=== PATIENT | male | born 1960 | race Caucasian/White ===

== ENCOUNTER 2025-05-25 12:20 | Inpatient (IN) | payer OTHER, SELFPAY ==
[2025-05-25] VITALS (29 sets, daily range): BP systolic 114–151; BP diastolic 59–74; PULSE 80–98; BMI 19.3; BMI 18.6
--- NOTE | 2025-05-25 10:17 | ED.GENMED ---
History of Present Illness
General
Chief Complaint: Breathing Problem
Source: patient
Exam Limitations: none
Time Seen by Provider: 05/25/25 09:58
Nursing documentation reviewed up to this point in time: agreed with
History of Present Illness
History of Present Illness:
See MDM
Review of Systems
Review of Systems
Allergies reviewed?: Yes
All Other Systems: Not applicable
Phy Exam
Physical Exam
Physical Exam:
See MDM
Scores
Heart Failure Risk
Heart Failure Risk Score: Not Applicable
Course
Orders/Labs/Results
Orders:
Orders
05/25/25 09:55
Electrocardiogram (*1) Urgent
Reason for Study: Shortness of Breath
EKG- Treatment ONCE
05/25/25 10:09
CR Chest - 2 Views Urgent
Comment:
Reason For Exam: LAM
05/25/25 10:17
Type And Crossmatch [Type+Screen] Urgent
Complete Blood Count/With Diff Urgent
Comprehensive Metabolic Panel Urgent
Ferritin Urgent
Iron Urgent
NT-proBNP Urgent
PTT Urgent
Prothrombin Time Urgent
Total Iron Binding Urgent
Troponin I Urgent
05/25/25 10:38
Blood Bank Products [* Blood Bank Products] Urgent
Blood Bank Products: *Packed RBC Leuko(PRBC's)
Quantity: 2
Transfuse Today: Yes
Reason: Anemia
05/25/25 10:45
Pantoprazole [Protonix IV] 40 mg IV NOW STA
05/25/25 10:52
ABO2 Urgent
BBK Wristband Number:
Associate notified that ABO2 has been ordered: [id number]
Date: 05/25/25
Time: 10:26
Loss Prevention Officer ID: [id number]
05/25/25 11:44
Admit/Transfer Patient As Directed
Co-Sign Provider:
Level of Care: Inpatient admission
Assign to:: Telemetry
Physician / Group: Cj
Diagnosis: Severe symptomatic anemia
Reason for Telemetry: Other
Other Reason for Telemetry: HH 3.8
Date to Stop Telemetry: 05/27/25
Time to Stop Telemetry: 11:00
Reason for Hospitalization: see progress note
Expected length of stay greater than two midnights?: Yes
ELOS- Estimated Length of Stay in days: 3
I certify the patient meets the requirements for IP care: Yes
PRN Pain Medication Management As Directed
May give lesser potent ordered pain med per pt: Yes
preference::
Protocol:: Medication orders for pain may be administered in a
manner that supports deferring to patient preference
when the pt is:
- Requesting an ordered lesser potent pain medication.
Least to most potent pain medications are defined
as: acetaminophen < NSAID < tramadol < opioids
(morphine, oxycodone, hydromorphone).
- Requesting a lesser dose of the same medication IF
ORDERED.
- Requesting a less intrusive route of administration
if both routes are prescribed by the provider (PO <
IV).
05/25/25 12:00
Code Status As Directed
Resuscitation Status: Full Code
05/27/25 11:00
DC Protocol for Telemetry ONCE
Abnormal Lab Results
05/25/25
10:17
RBC 2.83 L 10^6/uL
(4.70-6.10)
Hgb 3.8 L* g/dL
(13.0-18.0)
Hct 15.9 L* %
(39.0-52.0)
MCV 56.2 L fL
(80.0-94.0)
MCH 13.4 L pg
(27.0-31.0)
MCHC 23.9 L g/dL
(33.0-37.0)
RDW 20.6 H %
(11.5-14.5)
Absolute Lymphs (auto) 0.7 L 10^3/uL
(1.2-3.4)
Lymphocytes % 14.3 L %
(20.5-51.1)
Monocytes % 10.0 H %
(1.7-9.3)
Sodium 134 L mmol/L
(135-145)
Glucose 117 H mg/dl
(70-99)
Calcium 8.2 L mg/dl
(8.4-10.2)
Iron < 20 L ug/dl
(49-181)
Ferritin 4.8 L ng/ml
(17.9-464.0)
AST 13 L U/L
(17-59)
Total Protein 5.8 L g/dl
(6.3-8.2)
Albumin 3.2 L g/dl
(3.5-5.0)
Crossmatch IS Only See Detail
05/25/25 10:17
05/25/25 10:17
Vital Signs
Initial and Last Documented VS:
Initial Vital Signs
BP
144/69
05/25/25 09:55
Last Documented Vital Signs
Temp Pulse Resp BP Pulse Ox
36.7 C 83 16 119/60 99
05/25/25 13:20 05/25/25 13:20 05/25/25 13:20 05/25/25 13:20 05/25/25 13:20
MDM/Problems Addressed
Differential Diagnosis Includes:
see MDM
MDM/Problems Addressed:
Note:
CHIEF COMPLAINT(S)
Shortness of breath and fatigue.
HISTORY OF PRESENT ILLNESS
The patient is a male who presents with a chief complaint of shortness of breath and fatigue, LAM. The symptoms began in December and have progressively worsened. He reports being unable to perform activities like walking upstairs without experiencing
significant shortness of breath, stating, 'I cant even carry myself up.' Previously, he could carry two cases of water up to his condo, but now he has to stop at the first landing. He denies any chest pain but confirms shortness of breath without
associated dark stools, despite looking quite pale. The patient notes experiencing chills, and mentioned a cough that began around November or December, sometimes leading to vomiting but very rarely. he thinks he has lost weight but cannot be sure, he
doesn't weigh himself.
The patient had recently regained insurance via Medicaid and sought medical attention. He visited an urgent care on May 10, where a chest X-ray was performed, reportedly normal per urgent care. The patient brought paperwork from this visit,
including an electrocardiogram. He visited a new PCP today, but was noticeably LAM with tachycardia, had EKG showing lateral st depressions and pt was esnt by EMS
he denies symptoms at rest, denies cp, pleuritic pain, vomting, black stool, alcohol use, cancer history
has never had colonoscopy
PAST MEDICAL AND SURGICAL HISTORY
The patient reports taking valsartan for hypertension. He denies a history of diabetes or cancer and has never required a blood transfusion. The patient has undergone surgery on his foot following an undisclosed injury.
EXTERNAL RECORDS REVIEWED
The patient provided documentation from a previous urgent care visit on May 10, which included a chest X-ray and electrocardiogram that were reportedly normal.
CHRONIC MEDICAL CONDITIONS SIGNIFICANTLY AFFECTING CARE
Hypertension, managed with valsartan.
SOCIAL DETERMINANTS AFFECTING HEALTH
The patient is currently unemployed and on disability due to a foot injury and is covered under Medicaid.
FAMILY HISTORY
The patient reports a family history of heart problems.
PHYSICAL EXAM
GENERAL: Alert , in no apparent distress, noticeably pale
EYE: pupils equal and reactive very pale conjunctive a
NECK: Supple
ENT: o/p clr, mmm.
CARDIAC: Regular rate and rhythm .
LUNGS: Clear breath sounds bilaterally, no acute respiratory distress, no wheezes/rales/rhonchi
ABDOMEN: Soft, without focal tenderness, no r/g, no cvat, normal bowel sounds
Rectal heme positive light brown stool
NEUROLOGICAL: Alert and oriented, no focal neuro deficits
SKIN: Warm and dry, skin intact., Very pale, almost icteric
MUSCULOSKELETAL: No edema, well perfused. neg esau's sign
PSYCH: Normal and appropriate interaction.
- Nursing notes reviewed and vital signs reviewed.
PROBLEM LIST
Acute:
- Shortness of breath
- Fatigue
- Anemia (evidenced by pale appearance and blood in stool)
Chronic:
- Hypertension
PLAN
- Obtain blood work, including complete blood count, to evaluate for anemia.
- Order chest X-ray to assess for any fluid or other underlying causes of respiratory symptoms.
- Type and screen for possible blood transfusion needs, per nursing.
DIFFERENTIAL DIAGNOSIS
The Differential Diagnosis includes, in no particular order and is not limited to:
1. Anemia of chronic disease
2. Iron deficiency anemia
3. Congestive heart failure
4. Chronic obstructive pulmonary disease
5. Pulmonary embolism
6. Gastrointestinal bleed
7. Valvular heart disease
8. Chronic kidney disease with anemia
9. Lung infection or pneumonia
10. Hypothyroidism
64-year-old male coming from an outpatient new primary care doctor appointment for dyspnea on exertion with an abnormal EKG and abnormal vital signs. Patient says symptoms been ongoing for months but progressively worse to the point where he cannot
walk up a full flight of steps without stopping because he is winded. He is not getting any exertional chest pain. He does recover with rest. He says he is always pale but did not notice how significantly pale he was. He has not been checking
his stool. He does not go to the doctor and has not ever had a colonoscopy. His brother recently got diagnosed with some sort of cancer and is in the hospital. Patient was initially mildly tachycardic, at rest this resolved. He is normotensive.
His conjunctive is extremely pale, his stool is heme positive but light brown in color. He has no abdominal tenderness, clear lungs and no signs of heart failure. His hemoglobin is 3.8 which is microcytic hypochromic anemia, he does report that he
does not eat a lot of red meat.
Consent for blood obtained, will transfuse. Patient does have very subtle ST depressions in V5 and V6 which is likely demand ischemia related to his low hemoglobin. His troponin is pending. Signed out to the hospitalist
*Pulse Oximetry
SaO2: 100
Oxygen Mode of Delivery: Room air
Patient hypoxic: no (100)
*Critical Care Note
Total Time (30-74mins, 75-104mins- exclusive of procedures): Not Applicable
ED Attending Note
-
Portions of this chart may have been created with voice recognition software.� Occasional wrong word or��sound alike� substitutions may have occurred due to the inherent limitations of voice recognition software.
Discharge Plan
Departure
Patient Disposition: Admit
Date of Disposition: 05/25/25
Time of Disposition: 10:45
Admit to: Telemetry
Presentation/result/management discussed w/ accepting MD/DO: Hospitalist
Condition: Fair
Covid-19: Not Applicable
Discharge Problem:
Symptomatic anemia
Interventions
Interventions:
*Risk Screen - Suicide Last Done: 05/25/25 10:00
*General Assessment Last Done: 05/25/25 10:00
*Neglect/Abuse Screening Last Done: 05/25/25 10:00
*ED- Fall Risk Assessment Last Done: 05/25/25 10:00
*ED COVID-19 Vaccine History Last Done: 05/25/25 10:00
ED- Cardiac Assessment Last Done: 05/25/25 10:00
ED- Pulmonary Assessment Last Done: 05/25/25 10:00
[2025-05-25 10:34] LABS: Hematocrit 15.9 % (39.0-52.0); Hemoglobin 3.8 g/dL (13.0-18.0); Mean Corp Hgb Conc. 23.9 g/dL (33.0-37.0); Mean Corpuscular Volume 56.2 fL (80.0-94.0); Nucleated Red Blood Cells % 0 % (-); Platelet Count 338 10^3/uL (130-400); Red Cell Dist. Width 20.6 % (11.5-14.5)
[2025-05-25 10:37] LABS: INR 1.00; PT 13.7 Sec (11.4-14.6)
[2025-05-25 10:38] LABS: APTT 31.7 Sec (23.4-35.0)
[2025-05-25 10:45] LABS: Anisocytosis 1+; Hypochromasia 3+; Normal RBC Morphology No; Ovalocytes 1+; Polychromasia Slight
[2025-05-25 10:46] LABS: ALT (SGPT) 11 U/L (0-50); AST (SGOT) 13 U/L (17-59); Albumin 3.2 g/dl (3.5-5.0); Alkaline Phosphatase 83 U/L (38-126); Blood Urea Nitrogen 13 mg/dl (9-20); Calcium 8.2 mg/dl (8.4-10.2); Carbon Dioxide 22 mmol/L (22-30); Chloride 107 mmol/L (98-107); Estimated Creatinine Clearance 83 ml/min; Glucose 117 mg/dl (70-99); Potassium 4.4 mmol/L (3.5-5.1); Sodium 134 mmol/L (135-145); Total Protein 5.8 g/dl (6.3-8.2); eGFR > 60.00
[2025-05-25 10:48] LABS: Iron < 20 ug/dl (49-181)
[2025-05-25 10:53] LABS: Troponin I < 0.012 ng/ml
[2025-05-25 10:56] LABS: Total Iron Binding Capacity 369 ug/dl (261-462)
[2025-05-25] MEDS: PROTONIX IV 40 MG IV (11:10)
--- NOTE | 2025-05-25 12:03 | HPS.HSE ---
Family Physician
-
Family Physician: PHYSICIAN PRIVATE
Chief Complaint
-
Exertional shortness of breath
History of Present Illness
Patient has been progressively having shortness of breath since this year.
Now he is not even able to walk from his bedroom to the bathroom without being short of breath.
He just got Medicaid insurance approved so went to urgent care center where he was put back on his antihypertensive valsartan which he took in the past. He took it only for a week as he was feeling lightheaded dizzy and could not function so he
stopped taking it.
With continued shortness of breath he presented to ER and we found his Hemoglobin of 3.8.
Denies any chest pains or palpitations. No cough. No lower extremity edema. Denies any prior cardiac disease. Strong family history of cardiac disease.
Denies any upper GI symptoms of nausea, heartburn, reflux or abdominal pain. Does not notice his stools so he cannot tell if it was ever noted to be black or dark. He is heme positive here.
Did not have colonoscopy in the past. Not sure if anybody had a colon cancer but his brother has bladder cancer and another sibling has some sort of cancer.
Medical History
Past Medical History
Past Medical History: Reports HTN
Past Surgical History: Reports Other (ankle surgery for fx)
Social History
Tobacco: Former Smoker (quit in 1979)
Alcohol: Occasional
Drug: None
Personal:
Living: With Family
Employment: Not Employed
Family History
Family History: Early CAD
Allergies / Home Medications
Allergies reflects when Allergies were last updated in [facility].
Home Medications with original date entered in [facility]
Allergy/Medication List:
Allergies
Allergy/AdvReac Type Severity Reaction Status Date / Time
No Known Allergies Allergy Unverified 05/25/25 11:09
Home Medications
valsartan 320 mg tablet 320 mg PO DAILY 05/25/25
Review of Systems
-
A 12 point ROS was completed and negative except as noted: Yes
Physical Exam
Vital Signs
Vital Signs
Temp Pulse Resp BP Pulse Ox
98.2 F 90 18 139/74 100
05/25/25 10:00 05/25/25 11:24 05/25/25 11:24 05/25/25 11:24 05/25/25 11:24
Physical Exam
General: Comfortable
HEENT: Other (pale conjuctiva)
Respiratory: Clear
Cardiac: S1/S2, Regular Rhythm and Tachycardia; No Murmur
GI: Soft, Non Tender and No Hepatosplenomegaly
Musculoskeletal: No Edema
Neuro: AO x 3 and No Motor Deficits
Psych: Calm and Intact Judgment/Insight; No Confused
Laboratory Results
-
05/25/25 10:17
05/25/25 10:17
Laboratory Results
PT 13.7 Sec (11.4-14.6) 05/25/25 10:17
INR 1.00 05/25/25 10:17
APTT 31.7 Sec (23.4-35.0) 05/25/25 10:17
Total Bilirubin 0.6 mg/dl (0.2-1.3) 05/25/25 10:17
AST 13 U/L (17-59) L 05/25/25 10:17
ALT 11 U/L (0-50) 05/25/25 10:17
Alkaline Phosphatase 83 U/L (38-126) 05/25/25 10:17
Troponin I < 0.012 ng/ml 05/25/25 10:17
Data Reviewed
-
Lab Data: Labs Reviewed by me
Impression/Plan
-
Severe symptomatic anemia causing exertional shortness of breath. No clinical evidence of acute coronary syndrome nor acute heart failure. Treat anemia and follow symptoms
Severe microcytic anemia with iron deficiency indicis. Ferritin pending. Heme positive stools. Suspect chronic GI bleed. Hemodynamically stable. Keep n.p.o. Transfuse 2 units and follow H&H and transfuse as needed and as tolerated. Aim to
keep hemoglobin more than 7. Start on PPI. Consult GI for endoscopic eval. Start on IV iron as well.
Primary hypertension-patient symptomatic when he was resumed on ARB last week. Hold for now and follow orthostatic blood pressures.
Full code
[2025-05-25 12:48] LABS: Ferritin 4.8 ng/ml (17.9-464.0)
--- NOTE | 2025-05-25 15:50 | CM ---
Met with patient and sister at the bedside in the ED
Pharmacy verified: [facility] @ [address]
Lives w/ spouse; 3rd floor condo; 8 steps to enter building; 24 steps to Condo; railings on stairs; No elevator access; bath has tub w/shower
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
No DME
No SNF or Home Health utilization history
Family member will provide transport
Discharge plan to be determined; Case Management will monitor for needs/services and coordinate when identified
--- NOTE | 2025-05-25 15:55 | CON.GI ---
Addendum entered and electronically signed by Mary Anne Perales Do, MD 05/25/25 17:18:
I saw and examined the patient.
The MEDICAL VOUCHER CLERK's note was reviewed and I agree with the note.
Comment: Kian is a 64yo M with h/o HTN who presents from urgent care for symptomatic severe iron def anemia Hbg 3.8. Denies any overt signs of blood in stools. No AC or chronic nsaids. +diarrhea. Twin brother with colon cancer. Vitals stable
pale appearing NTTP NABs. Labs reviewed
Impression
- Severe symptomatic DAINELLE
ddx includes malignancy, celiac, ectasia or ulcer
- Diarrhea
- FH of CRC (twin brother)
- Remote h/o ETOH use
- Lack of medical insurance or routine health care
- HTN
Recommendations
- Agree with transfusions for goal >7-8
- IV iron
- Add on vit B12 folate
- Check celiac panel
- CLD now NPO at [place] for EGD tomorrow
- To consider Cscope pending above
- IV Protonix once daily
Will follow with you
Original Note:
Consultation
-
Date/Time Consultation Requested: 05/25/25 1550
Date/Time Consultation Performed: 05/25/25 1600
Requesting Provider: Michael Corona MD
Performing Provider: ELOISA Perez, Mary Anne Julian MD
Reason for Consultation: anemia
Medical History
Chief Complaint / HPI
Chief Complaint: shortness of breath, weakness
History of Present Illness:
Pt is a 64yo with hx prior foot fracture with repair, rib fractures, HTN newly diagnosed with limited medical care in past with visit to new PCP today with difficulty with walking and breathing for several months. He also has complaints of
dizziness. In PCP office noted with HR 121, FBS 167 with significant tachypnea and EKG changes and sent to ER for evaluation. In ER noted with hbg 3.8 with MCV 56.2 with iron deficient indices with heme + brown stool and neg troponin. In
review with patient and sister he has family hx colon Cancer in twin brother who is now . He initially denied GI symptoms but per staff later admits to diarrhea with smells of food and will not eat at time to prevent diarrhea. He otherwise
denies dysphagia, GERD, nausea, vomiting, wt loss, abdominal pain, constipation, blood or black in stools. No prior EGD or colonoscopy. No NSAID use other than ASA than may have been given by PCP prior to admission.
Past Medical History
Past Medical History: HTN and Other (fib fracture )
Past Surgical History: Orthopedic (foot fracture with repair )
Social History
Tobacco: Former Smoker
Alcohol: Former (Pt initially denies but per nursing staff with hx ETOH use and ETOH rehab)
Drug: None
Personal:
Living: With Family
Employment: Not Employed
Family History
Family History: Other (father, brother [place], twin brother with colon CA, 2 brother with bladder cancer )
Allergies / Home Medications
Allergy/AdvReac Type Severity Reaction Status Date / Time
No Known Allergies Allergy Unverified 05/25/25 11:09
�Medication �Instructions �Recorded
valsartan 320 mg tablet 320 mg PO DAILY Blood Pressure 05/25/25
Review of Systems
-
History Source: Patient and Family
Constitutional: Reports Fatigue
EENT: Reports No Symptoms
Respiratory: Reports Trouble Breathing
Cardiac: Reports No Symptoms
Abdomen/GI: Reports Diarrhea
: Reports No Symptoms
Musculoskeletal: Reports No Symptoms
Skin: Reports No Symptoms
Neurological: Reports Dizzy and Weakness
Endocrine: Reports No Symptoms
Hematologic/Lymphatic: Reports No Symptoms
Vital Signs
Temp Pulse Resp BP Pulse Ox
98.1 F 88 16 140/67 99
05/25/25 13:20 05/25/25 15:30 05/25/25 15:30 05/25/25 15:30 05/25/25 15:30
Physical Exam
Exam
General: Other (pale appearing )
HEENT: Normocephalic and Anicteric
Respiratory: Clear
Cardiac: Regular Rhythm
GI: Soft, Non Tender and Non Distended
Musculoskeletal: No Clubbing and No Cyanosis
Results
WBC 4.9 10^3/uL (4.8-10.8) 05/25/25 10:17
Hgb 3.8 g/dL (13.0-18.0) L* 05/25/25 10:17
Hct 15.9 % (39.0-52.0) L* 05/25/25 10:17
MCV 56.2 fL (80.0-94.0) L 05/25/25 10:17
Plt Count 338 10^3/uL (130-400) 05/25/25 10:17
Absolute Neuts (auto) 3.6 10^3/uL (1.4-6.5) 05/25/25 10:17
PT 13.7 Sec (11.4-14.6) 05/25/25 10:17
INR 1.00 05/25/25 10:17
APTT 31.7 Sec (23.4-35.0) 05/25/25 10:17
Sodium 134 mmol/L (135-145) L 05/25/25 10:17
Potassium 4.4 mmol/L (3.5-5.1) 05/25/25 10:17
Chloride 107 mmol/L (98-107) 05/25/25 10:17
Carbon Dioxide 22 mmol/L (22-30) 05/25/25 10:17
BUN 13 mg/dl (9-20) 05/25/25 10:17
Creatinine 0.8 mg/dL (0.7-1.3) 05/25/25 10:17
Calcium 8.2 mg/dl (8.4-10.2) L 05/25/25 10:17
Total Bilirubin 0.6 mg/dl (0.2-1.3) 05/25/25 10:17
AST 13 U/L (17-59) L 05/25/25 10:17
ALT 11 U/L (0-50) 05/25/25 10:17
Alkaline Phosphatase 83 U/L (38-126) 05/25/25 10:17
Diagnostic Image Results:
Prior GI Procedures:
EGD:
Colonoscopy:
Assessment / Plan
-
Pt is a 64yo with hx prior foot fracture with repair, rib fractures, HTN newly diagnosed with limited medical care in past with visit to new PCP today with difficulty with walking and breathing for several months. He also had complaints of
dizziness . In PCP office noted with HR 121, FBS 167 with significant tachypnea and EKG changes and sent to ER for evaluation. In ER noted with hbg 3.8 with MCV 56.2 with iron deficient indices with heme + brown stool and neg troponin. In
review with patient and sister he has family hx colon Cancer in twin brother who is now . He initially denied GI symptoms but per staff later admits to diarrhea with smells of food and will not eat at time to prevent diarrhea. He otherwise
denies dysphagia, GERD, nausea, vomiting, wt loss, abdominal pain, constipation, blood or black in stools. No prior EGD or colonoscopy. No NSAID use other than ASA than may have been given by PCP prior to admission.
-symptomatic microcytic iron deficiency anemia
-HTN
-tachycardia on admission
-EKG changes with normal troponin on admission
-diarrhea prior to admission
-mild hyponatremia
-hypoalbuminemia
-twin brother with hx colon CA
other med problems:
-hx foot fracture with repair
-rib fractures
-HTN
-eTOH use with prior ETOH rehab
PLAN:
Etiology of anemia related to PUD, ectasia, mass. celiac related vs other
likely slow blood loss with symptoms for several months
agree with transfusion for 3 units now then repeat hbg to see if further transfusion needed
agree with IV iron
ok for clear dinner
add celiac panel for aM
cont PPI
updated sister at bedside
-
-
Thank you for consultation and allowing me to participate in the patient's care. Please call the economics teacher GI physician during the after hours with any questions or concerns.
[2025-05-25] MEDS: FERRLECIT 110 MG IV (20:32)
[2025-05-25] MEDS: NSS 1000 IV (21:32)
[2025-05-25 21:33] LABS: Folate 11.6 ng/ml (2.76-20); Vitamin B12 182 pg/ml (239-931)
[2025-05-25 22:20] LABS: Hematocrit 22.1 % (39.0-52.0); Hemoglobin 6.4 g/dL (13.0-18.0)
[2025-05-26] VITALS (12 sets, daily range): BP systolic 16–149; BP diastolic 60–79; PULSE 77–95
[2025-05-26 08:16] LABS: Hematocrit 27.5 % (39.0-52.0); Hemoglobin 8.0 g/dL (13.0-18.0); Mean Corp Hgb Conc. 29.1 g/dL (33.0-37.0); Mean Corpuscular Volume 67.7 fL (80.0-94.0); Nucleated Red Blood Cells % 0 % (-); Platelet Count 297 10^3/uL (130-400); Red Cell Dist. Width 30.3 % (11.5-14.5)
[2025-05-26 08:48] LABS: Blood Urea Nitrogen 8 mg/dl (9-20); Calcium 8.0 mg/dl (8.4-10.2); Carbon Dioxide 22 mmol/L (22-30); Chloride 109 mmol/L (98-107); Estimated Creatinine Clearance 94 ml/min; Glucose 80 mg/dl (70-99); Potassium 4.2 mmol/L (3.5-5.1); Sodium 135 mmol/L (135-145); eGFR > 60.00
[2025-05-26] MEDS: PROTONIX IV 40 MG IV (09:32)
[2025-05-26] MEDS: NSS (PRESERVATIVE FREE) 10 ML IV (09:32)
[2025-05-26] MEDS: NSS 1000 IV (09:33)
--- NOTE | 2025-05-26 11:26 | W.PN.UPDATE ---
Update Note
Progress Note Update
EGD done
Irregular z line- bx'd
Small hiatal hernia
Multiple gastric polyps body- bx'd
Bx taken for HPylori
Duodenal flattening 2nd portion- bx'd
REC:
Await path
Colonoscopy tomorrow
[2025-05-26 11:39] LABS: Hepatitis C Antibody Negative (Negative)
--- NOTE | 2025-05-26 12:49 | W.PN.HOSP.TC ---
Today's Communication/Plan
-
For colonoscopy tomorrow.
Assessment / Plan
Assessment / Plan
Severe symptomatic anemia causing exertional shortness of breath. No clinical evidence of acute coronary syndrome nor acute heart failure. Treat anemia and follow symptoms.
Severe microcytic anemia with iron deficiency . Ferritin very low. Heme positive stools. Suspect chronic GI bleed. Hemodynamically stable. Status post 3 units of PRBC with improvement in hemoglobin to 8.0 aim to keep hemoglobin more than 7.
Continue with IV iron. S/p EGD without any source of bleeding. For colonoscopy tomorrow. GI following.
Primary hypertension-patient symptomatic when he was resumed on ARB last week. Hold for now and follow orthostatic blood pressures. Blood pressure under goal
Full code
Anticipated Discharge: 24 - 48 hours
Subjective/Interval History
-
Date of Service: May 26, 2025
Back from EGD.
Feels better in general after transfusion. No shortness of breath at rest. No dizziness.
No nausea vomiting or abdominal pain.
Objective Data
-
Labs:
Laboratory Results
05/26/25 05/26/25 05/26/25
07:57 07:57 07:57
WBC 5.2
Hgb 8.0 L D Cancelled
Hct 27.5 L Cancelled
Plt Count 297
Sodium 135
Potassium 4.2
Chloride 109 H
Carbon Dioxide 22
BUN 8 L
Creatinine 0.7
Glucose 80
Calcium 8.0 L
Vital Signs:
Vital Signs
Temp Pulse Resp BP Pulse Ox
97.1 F 73 23 116/65 96
05/26/25 10:40 05/26/25 10:45 05/26/25 10:45 05/26/25 10:47 05/26/25 10:47
I&O
05/25/25 05/26/25 05/27/25
06:59 06:59 06:59
Intake Total 2059
Output Total 650 / 650
Balance 1409 / 1409
Physical Exam
-
General: No Apparent Distress
Respiratory: Non Labored Respirations; Negative Accessory Resp Muscle Use
Cardiac: Regular Rhythm and S1/S2; Negative Tachycardic
GI: Soft and Nontender
Neuro: AO x 3
Data Reviewed
-
Labs: Labs Reviewed by me
--- NOTE | 2025-05-26 13:06 | CM ---
Home no needs when stable.
Plan; Home no needs
--- NOTE | 2025-05-26 13:49 | PN.CDI ---
CDI
- -
CDI:
Physician Documentation Request
Admit Date: 05/25/25 12:20
Dear Doctor Cj,
Clinical Indicators:
Height: 5 ft 11 in
Weight: 133
RD notes 05/25 'BMI18.6-underweight
Please provide an associated diagnosis related to the abnormal BMI :
BMI < or = to 19
Underweight
Weight Loss
Cachectic
Anorexia
- BMI is not significant
- Other
Use of terms such as suspected, likely, concern for, or probable (associated with a specific diagnosis that is being evaluated, monitored, or treated as if it exists) are acceptable and can be coded in the inpatient setting, when documented at the
time of discharge.
Thank you,
Roma Valero RN, BSN
CDI Specialist
tiger text
Please use your independent medical judgment in providing your response.
[2025-05-26] MEDS: FERRLECIT 110 MG IV (15:52)
[2025-05-26] MEDS: NULYTELY SOLUTION 4 LITERS PO (17:51)
[2025-05-27 03:31] VITALS: BP 99/61
[2025-05-27 07:20] VITALS: BP 128/69
[2025-05-27] MEDS: NSS (PRESERVATIVE FREE) 10 ML IV (08:14)
[2025-05-27] MEDS: PROTONIX IV 40 MG IV (08:14)
[2025-05-27 09:05] LABS: Hematocrit 28.7 % (39.0-52.0); Hemoglobin 8.2 g/dL (13.0-18.0); Mean Corp Hgb Conc. 28.6 g/dL (33.0-37.0); Mean Corpuscular Volume 68.7 fL (80.0-94.0); Platelet Count 341 10^3/uL (130-400); Red Cell Dist. Width 30.6 % (11.5-14.5)
--- NOTE | 2025-05-27 12:02 | W.PN.UPDATE ---
Update Note
Progress Note Update
Colonoscopy done
Circumferential mass in ascending colon/cecum. Bx'd and tattooed x 2 distal to mass
Two 4mm polyps transverse colon and rectum removed with cold snare
REC:
CT abd/pelvis ordered
Consult Colorectal surgery
Clears for now
--- NOTE | 2025-05-27 12:36 | W.PN.HOSP.TC ---
Today's Communication/Plan
-
Consult Colorectal
Assessment / Plan
Assessment / Plan
Severe symptomatic anemia causing exertional shortness of breath. No clinical evidence of acute coronary syndrome nor acute heart failure. Feeling improved.
Severe microcytic anemia with iron deficiency . Ferritin very low. Heme positive stools. Suspect chronic GI bleed. Hemodynamically stable. Status post 3 units of PRBC with improvement in hemoglobin to 8.0 aim to keep hemoglobin more than 7.
Continue with IV iron. S/p EGD without any source of bleeding.
Colonic mass-today's EGD shows A fungating partially obstructing large mass was found in the cecum and in the ascending colon. The mass was circumferential. GI plans to get a CT of the abdomen pelvis. Will consult colorectal surgery. Follow
biopsy report.
Primary hypertension-patient symptomatic when he was resumed on ARB last week. Hold for now and follow orthostatic blood pressures. Blood pressure under goal
Full code
Anticipated Discharge: > 48 hours
Subjective/Interval History
-
Date of Service: May 27, 2025
Back from colo
No N/V or abdo pain
Not SOB
Objective Data
-
Labs:
Laboratory Results
05/27/25
07:48
WBC 6.3
Hgb 8.2 L
Hct 28.7 L
Plt Count 341
Vital Signs:
Vital Signs
Temp Pulse Resp BP Pulse Ox
98 F 82 16 128/69 98
05/27/25 07:20 05/27/25 07:20 05/27/25 07:20 05/27/25 07:20 05/27/25 07:20
I&O
05/26/25 05/27/25 05/28/25
06:59 06:59 06:59
Intake Total 2059 / 2059 720 / 720
Output Total 650 / 650
Balance 1410 / 1410 720 / 720
Physical Exam
-
General: Comfortable
Respiratory: Non Labored Respirations; Negative Accessory Resp Muscle Use
GI: Soft and Nontender
Neuro: AO x 3
Data Reviewed
-
Labs: Labs Reviewed by me
[2025-05-27] MEDS: OMNIPAQUE 50 ML PO (13:48)
[2025-05-27] MEDS: FERRLECIT 110 MG IV (14:40)
[2025-05-27 16:00] VITALS: BP 136/63
[2025-05-28 00:29] VITALS: BP 127/62
[2025-05-28 07:20] VITALS: BP 95/56
[2025-05-28] MEDS: PROTONIX IV 40 MG IV (08:46)
[2025-05-28] MEDS: NSS (PRESERVATIVE FREE) 10 ML IV (08:47)
--- NOTE | 2025-05-28 09:23 | W.PN.GI.CBS2 ---
Today's Communication / Plan
-
CT shows ascending colon mass involving cecum and TI. No evidence of metastatic LN or liver mets
Await CRS input
Await path
Will sign off. Please call back if needed
Assessment / Plan
-
Pt is a 64yo with hx prior foot fracture with repair, rib fractures, HTN newly diagnosed with limited medical care in past with visit to new PCP today with difficulty with walking and breathing for several months. He also had complaints of
dizziness . In PCP office noted with HR 121, FBS 167 with significant tachypnea and EKG changes and sent to ER for evaluation. In ER noted with hbg 3.8 with MCV 56.2 with iron deficient indices with heme + brown stool and neg troponin. In
review with patient and sister he has family hx colon Cancer in twin brother who is now . He initially denied GI symptoms but per staff later admits to diarrhea with smells of food and will not eat at time to prevent diarrhea. He otherwise
denies dysphagia, GERD, nausea, vomiting, wt loss, abdominal pain, constipation, blood or black in stools. No prior EGD or colonoscopy. No NSAID use other than ASA than may have been given by PCP prior to admission.
Impression:
R colon mass
-symptomatic microcytic iron deficiency anemia
-HTN
-tachycardia on admission
-EKG changes with normal troponin on admission
-diarrhea prior to admission
-mild hyponatremia
-hypoalbuminemia
-twin brother with hx colon CA
Subjective
Subjective
Date of Service: May 28, 2025
Denies complaints
Objective
Data Reviewed
Laboratory Data:
Laboratory Results
05/26/25 07:57
Laboratory Results
PT 13.7 Sec (11.4-14.6) 05/25/25 10:17
INR 1.00 05/25/25 10:17
APTT 31.7 Sec (23.4-35.0) 05/25/25 10:17
Total Bilirubin 0.6 mg/dl (0.2-1.3) 05/25/25 10:17
AST 13 U/L (17-59) L 05/25/25 10:17
ALT 11 U/L (0-50) 05/25/25 10:17
Alkaline Phosphatase 83 U/L (38-126) 05/25/25 10:17
Vital Signs and I&O:
Vital Signs
Temp Pulse Resp BP Pulse Ox
98.0 F 76 18 95/56 98
05/28/25 07:20 05/28/25 07:20 05/28/25 07:20 05/28/25 07:20 05/28/25 07:20
I&O
05/27/25 05/28/25 05/29/25
06:59 06:59 06:59
Intake Total 720 / 720 1140 / 1140
Balance 720 / 720 1140 / 1140
Physical Exam
Physical Exam
GI: Soft, Non Distended and Non Tender
[2025-05-28 09:29] LABS: Hematocrit 28.9 % (39.0-52.0); Hemoglobin 8.2 g/dL (13.0-18.0); Mean Corp Hgb Conc. 28.4 g/dL (33.0-37.0); Mean Corpuscular Volume 70.5 fL (80.0-94.0); Platelet Count 359 10^3/uL (130-400); Red Cell Dist. Width 31.4 % (11.5-14.5)
[2025-05-28 10:14] LABS: CEA 0.71 ng/ml
--- NOTE | 2025-05-28 11:19 | W.PN.HOSP.TC ---
Addendum entered and electronically signed by Michael Corona MD 05/28/25 15:05:
BMI 18.6 suggestive underweight
Original Note:
Today's Communication/Plan
-
Await colorectal surgery input
Assessment / Plan
Assessment / Plan
Severe symptomatic anemia causing exertional shortness of breath. No clinical evidence of acute coronary syndrome nor acute heart failure. Feeling improved after transfusion.
Severe microcytic anemia with iron deficiency . Ferritin very low. Heme positive stools. Suspect chronic GI bleed. Hemodynamically stable. Status post 3 units of PRBC with improvement in hemoglobin to 8.0 aim to keep hemoglobin more than 7.
Continue with IV iron. S/p EGD without any source of bleeding.
Colonic mass-[place] shows A fungating partially obstructing large mass was found in the cecum and in the ascending colon. The mass was circumferential. CT of the abdomen pelvis findings of a right colon mass noted. Consult colorectal surgery.
Follow biopsy report.
Primary hypertension-patient symptomatic when he was resumed on ARB last week. Hold for now and follow orthostatic blood pressures. Blood pressure under goal
Full code
Anticipated Discharge: > 48 hours
Subjective/Interval History
-
Date of Service: May 28, 2025
No specific complaints.
Tolerating clear liquid diet.
Denies shortness of breath.
Objective Data
-
Labs:
Laboratory Results
05/28/25
08:49
WBC 6.0
Hgb 8.2 L
Hct 28.9 L
Plt Count 359
Vital Signs:
Vital Signs
Temp Pulse Resp BP Pulse Ox
98.0 F 76 18 95/56 98
05/28/25 07:20 05/28/25 07:20 05/28/25 07:20 05/28/25 07:20 05/28/25 07:20
I&O
0805/28/25 05/29/25
06:59 06:59 06:59
Intake Total 720 / 720 1140 / 1140
Balance 720 / 720 1140 / 1140
Physical Exam
-
General: Comfortable
Respiratory: Non Labored Respirations; Negative Accessory Resp Muscle Use
GI: Soft and Nontender
Neuro: AO x 3
Psych: Calm
Data Reviewed
-
CT Scan: Report Reviewed by me (ct abd/pelvis)
Labs: Labs Reviewed by me
--- NOTE | 2025-05-28 12:08 | CON.CRS ---
Addendum entered and electronically signed by Anthony Hicks MD 05/28/25 12:40:
I saw and examined the patient.
The OUTSIDE COLLECTOR's note was reviewed and I agree with the note.
Comment: Cecal mass, partially obstructing, found on c-scope. Pt reports hematochezia recently. Denies n/v presently, though the bowel prep did cause some vomiting. CT without obstructive signs, mass is demonstrated incolving cecum and TI. Added on
tentatively for right colectomy with CRS for tomorrow. NPO@MN
Original Note:
Consultation
-
Date/Time Consultation Performed: 05/28/25 1105
Medical History
-
Chief Complaint: right abdominal pain
History of Present Illness:
Mr Chase is a 64 yo male with a h/o HTN and no prior colonoscopy before this admission who presented with increasing fatigue with SOB over the past several months to a year with dizziness. He recently obtained medical insurance and has not had
any recent evaluations by a PCP but did present to urgent care given worsening symptoms of dizziness with lightheadedness and was noted to be tachycardic and was sent to the ED. On arrival his hemoglobin was noted to be 3.8. He did not report dark
or bloody stools initially but stool was heme positive in the ED. Currently he is reporting bright red blood in his stools with frequent stooling. He reports some cramping with nausea and vomiting yesterday while undergoing a bowel prep which has
resolved today but he does note ongoing discomfort to the right mid to upper abdomen with tenderness on exam. No distention is present. He has tolerated clear liquids thus far.
Past Medical History
Past Medical History: HTN
Past Surgical History: Orthopedic (ankle)
Social History
Tobacco: Former Smoker (quit 1979)
Alcohol: Former
Personal:
Living: With Family
Family History
Family History: Cancer (colon ca in twin brother, bladder ca in another sibling)
Allergies / Home Medications
Allergy/AdvReac Type Severity Reaction Status Date / Time
No Known Allergies Allergy Unverified 05/25/25 11:09
�Medication �Instructions �Recorded �Confirmed �Type
valsartan 320 mg tablet 320 mg PO DAILY Blood Pressure 05/25/25 05/25/25 History
Review of Systems
-
History Source: Patient
All other systems: Negative unless noted
A 10 point review of systems was completed, and was negative except as per HPI.
Physical Exam
Vital Signs
Temp 98.0 F 05/28/25 07:20
Pulse 76 05/28/25 07:20
Resp Rate 18 05/28/25 07:20
Blood pressure 95/56 05/28/25 07:20
SaO2 98 05/28/25 07:20
Body Mass Index (BMI) 18.6
Lab Results / Allergies
05/28/25 08:49
05/26/25 07:57
WBC 6.0 10^3/uL (4.8-10.8) 05/28/25 08:49
Hgb 8.2 g/dL (13.0-18.0) L 05/28/25 08:49
Hct 28.9 % (39.0-52.0) L 05/28/25 08:49
Plt Count 359 10^3/uL (130-400) 05/28/25 08:49
Abs Immat Gran (auto) 0.1 10^3/uL (0-0.05) H 05/26/25 07:57
Neutrophils % 66.6 % (42.2-75.2) 05/26/25 07:57
Allergy/AdvReac Type Severity Reaction Status Date / Time
No Known Allergies Allergy Unverified 05/25/25 11:09
Physical Exam
General: Well Developed and Well Nourished
HEENT: Moist Mucous Membranes
Respiratory: Non Labored Respirations
GI: Soft and Tender (mild to right mid to upper abd)
Skin: Warm, Dry and Other (pale)
Neuro: Awake, Alert and AO x 3
Psych: Calm
Data Reviewed
-
CT Scan: Image Personally Visualized and interpreted, Report Reviewed by me, Discussed with Physician and Discussed with Patient
Medical Tests (Nuc Med, Echo etc): Report Reviewed by me, Discussed with Physician and Discussed with Patient
Labs: Labs Reviewed by me, Discussed with Physician and Discussed with Patient
Old Records: Reviewed
Assessment / Plan
-
Mr Chase is a 64 yo male with a h/o HTN and no prior colonoscopy before this admission who presented with increasing fatigue with SOB over the past year or so presenting with lightheadedness and symptomatic anemia with initial hemoglobin of 3.8.
He has been transfused with a total of 3 units of prbcs and hemoglobin is now stable at 8.2. Afebrile. Stable VSS. Coags WNL. Cramping with vomiting during bowel prep which has resolved. Passing flatus and bloody stools.
EGD on 05/26 without significant findings.
Colonoscopy on 05/27 with a partially obstructing mass concerning for malignancy seen at the cecum/ascending colon.
CT A&P with mural mass noted causing a partial obstruction in the proximal ascending colon/cecum involving the TI, oral contrast does pass through this area. No obvious metastatic disease noted on imaging. CEA is low at 0.71.
Plan:
Continue clear liquid diet, hold on advancing further
Trend exams labs
Anticipate surgical intervention this admission for right hemicolectomy as the mass is partially obstructing with ongoing bleeding. Will d/w the colorectal team on Thursday regarding timing. NPO after [place] in case OR able to be arranged tomorrow.
[2025-05-28] MEDS: FERRLECIT 110 MG IV (14:04)
[2025-05-28 15:41] VITALS: BP 133/62
[2025-05-28 23:54] VITALS: BP 119/63
[2025-05-29] VITALS (13 sets, daily range): BP systolic 112–166; BP diastolic 60–72; PULSE 66–94; BMI 17.9
[2025-05-29 07:47] LABS: Hematocrit 31.4 % (39.0-52.0); Hemoglobin 9.1 g/dL (13.0-18.0); Mean Corp Hgb Conc. 29.0 g/dL (33.0-37.0); Mean Corpuscular Volume 71.7 fL (80.0-94.0); Platelet Count 387 10^3/uL (130-400); Red Cell Dist. Width 32.6 % (11.5-14.5)
[2025-05-29 08:20] LABS: Blood Urea Nitrogen 9 mg/dl (9-20); Calcium 8.5 mg/dl (8.4-10.2); Carbon Dioxide 22 mmol/L (22-30); Chloride 110 mmol/L (98-107); Estimated Creatinine Clearance 82 ml/min; Glucose 71 mg/dl (70-99); Potassium 4.1 mmol/L (3.5-5.1); Sodium 138 mmol/L (135-145); eGFR > 60.00
[2025-05-29] MEDS: PROTONIX IV 40 MG IV (09:37)
[2025-05-29] MEDS: NSS (PRESERVATIVE FREE) 10 ML IV (09:37)
--- NOTE | 2025-05-29 10:34 | W.PN.CRS1 ---
Today's Communication / Plan
-
OR today
Assessment/Plan
-
64 yo male with a h/o HTN and no prior colonoscopy before this admission who presented with increasing fatigue with SOB over the past year or so presenting with lightheadedness and symptomatic anemia with initial hemoglobin of 3.8. He has been
transfused with a total of 3 units of prbcs and hemoglobin is now stable at 8.2. Afebrile. Stable VSS. Coags WNL. Cramping with vomiting during bowel prep which has resolved. Passing flatus and bloody stools.
EGD on 05/26 without significant findings.
Colonoscopy on 05/27 with a partially obstructing mass concerning for malignancy seen at the cecum/ascending colon.
CT A&P with mural mass noted causing a partial obstruction in the proximal ascending colon/cecum involving the TI, oral contrast does pass through this area. No obvious metastatic disease noted on imaging. CEA is low at 0.71.
Plan:
- OR today for a right colectomy. Discussed with the patient. Likely occur in later afternoon/early evening.
- Remain n.p.o. Adding IV fluids.
- Preop medications ordered.
- CEA is pending
- Monitor hemoglobin. Latest hemoglobin is 9.2.
- Pathology from colonoscopy pending.
Subjective Data
Subjective Data
Date of Service: May 29, 2025
Patient states he has sharp abdominal pain. Denies nausea or vomiting. He was able to drink the prep last night.
Objective Data
-
Vital Signs
Temp Pulse Resp BP Pulse Ox
97.8 F 66 16 166/63 100
05/29/25 07:45 05/29/25 07:45 05/29/25 07:45 05/29/25 07:45 05/29/25 07:45
Intake & Output
05/28/25 05/29/25 05/30/25
06:59 06:59 06:59
Intake Total 1140 / 1140 1310 / 1310
Balance 1140 / 1140 1310 / 1310
Intake:
Oral fluids 1140 / 1140 1200 / 1200
IV piggybacks 110 / 110
Other:
Number of approximated MODERATE 2 4 1
amounts of urine
Lab Results
05/29/25 07:15
05/29/25 07:15
Physical Exam
-
General: No Acute Distress and AOx3
Abdomen: Soft and Tender (Right lower quadrant)
Skin: Warm and Dry
--- NOTE | 2025-05-29 10:45 | W.PN.HOSP.TC ---
Today's Communication/Plan
-
IV fluids
Preop orders per colorectal
Remains n.p.o.
Plan for colectomy later today
trend hgb
Assessment / Plan
Assessment / Plan
#Colonic mass
Colonoscopy shows A fungating partially obstructing large mass was found in the cecum and in the ascending colon. The mass was circumferential. \\
CT of the abdomen pelvis findings of a right colon mass noted. Follow biopsy report.
CEA 0.71
Consult colorectal surgery. Preop orders placed. Plan for right colectomy tentative later today
#Severe symptomatic anemia causing exertional shortness of breath likely secondary to colonic mass
No clinical evidence of acute coronary syndrome nor acute heart failure.
Feeling improved after transfusion.
#Severe microcytic anemia with iron deficiency
Ferritin very low. Heme positive stools. Suspect chronic GI bleed. Hemodynamically stable.
Status post 3 units of PRBC with improvement in hemoglobin to 9.1
Transfuse to keep hemoglobin more than 7.
Continue with IV iron. S/p EGD without any source of bleeding.
#Primary hypertension
patient symptomatic when he was resumed on ARB last week.
Hold for now pre-op.
may need IV prn meds post op
Full code
DVT ppx-scds for now and start chemical ppx post op per surgery
Anticipated Discharge: > 48 hours
Subjective/Interval History
-
Date of Service: May 29, 2025
States mild abdominal discomfort
Objective Data
-
Labs:
Laboratory Results
05/29/25
07:15
WBC 5.1
Hgb 9.1 L
Hct 31.4 L
Plt Count 387
Sodium 138
Potassium 4.1
Chloride 110 H
Carbon Dioxide 22
BUN 9
Creatinine 0.8
Glucose 71
Calcium 8.5
Vital Signs:
Vital Signs
Temp Pulse Resp BP Pulse Ox
97.8 F 66 16 166/63 100
05/29/25 07:45 05/29/25 07:45 05/29/25 07:45 05/29/25 07:45 05/29/25 07:45
I&O
05/28/25 05/29/25 05/30/25
06:59 06:59 06:59
Intake Total 1140 / 1140 1310 / 1310
Balance 1140 / 1140 1310 / 1310
Physical Exam
-
General: No Apparent Distress
HEENT: Normocephalic, Atraumatic and Moist Mucous Membranes
Respiratory: Clear to Auscultation
Cardiac: Regular Rhythm and S1/S2; Negative Murmur, Rub or Gallop
GI: Soft, Nondistended, Normal Bowel Sounds and Tender; Negative Organomegaly
Rectal: Deferred by Provider
Musculoskeletal: No Clubbing, No Cyanosis and No Edema
Skin: Negative Rash
Neuro: Awake, Alert, Oriented, AO x 3, No Motor Deficits and Nonfocal/Grossly Intact
Psych: Calm
Data Reviewed
-
Total Time Spent with Patient (in minutes): 55
--- NOTE | 2025-05-29 13:52 | EDCM ---
Chart reviewed. Pt scheduled for Right colectomy today
Plan: TBD post-op
--- NOTE | 2025-05-29 14:00 | CM ---
Chart Reviewed. Pt for OR for R colectomy.
Plan: TBD post-op
[2025-05-29] MEDS: NEURONTIN 600 MG PO (14:20)
[2025-05-29] MEDS: TYLENOL 1000 MG PO (14:20)
[2025-05-29] MEDS: HEPARIN 5000 UNITS SC (14:21)
--- NOTE | 2025-05-29 15:41 | W.PN.UPDATE ---
Update Note
Progress Note Update
I saw this patient a couple hours ago on the floor. Due to availability I will be the surgeon performing the right colectomy. Will do this via an open approach given the size of the lesion as well as the partial obstruction. Open right colectomy
discussed with the patient in detail including risk and benefits. Risks touched on included but are not limited to bleeding, infection, anastomotic leak, anastomotic stricture, ureteral injury, bowel or solid organ injury, hernia formation,
recurrence of the cancer, and anesthetic risk. The patient understood and agreed to proceed.
--- NOTE | 2025-05-29 17:57 | W.OR.COLCA ---
Addendum entered and electronically signed by Mars Orlando MD 05/29/25 18:19:
Updated patient's sister and via phone conversation.
Original Note:
Colon Cancer Post Op Note
Immediate Post Op
Primary Surgeon: Keri Orlando MD
Assisting Surgeon: Andreas Bell [id number]
Pre-op Diagnosis: cecal cancer
Post-op Diagnosis: same
Procedure Performed: right colectomy
Anesthesia Type: general plus local
Specimen / Cultures: R colon
Estimated Blood Loss: 30 cc
Complications: no immediate
Operative Findings: 1) cecal mass with associated tattoo 2) no obvious peritoneal disease or hepatic metastases
Colon Resection
Colon Resection
Operation performed with curative intent: Yes
Tumor Location: Cecum
Right Hemicolectomy: Ileocolic and Right Colic
[2025-05-29] MEDS: DILAUDID 0.5 MG IV ×3 (18:02→22:57)
[2025-05-29] MEDS: TYLENOL 650 MG PO (20:27)
[2025-05-29] MEDS: TORADOL 10 MG IV (20:27)
[2025-05-29] MEDS: FERRLECIT IV (20:46)
[2025-05-29] MEDS: NORMOSOL-R/PLASMALYTE-A 1000 IV (20:47)
[2025-05-29] MEDS: NORMOSOL-R/PLASMALYTE-A IV (20:48)
--- NOTE | 2025-05-29 20:52 | PTCARENOTE ---
19:30 pt rec'vd from PACU drowsy but easily arousable to voice, midline abd drsg with small drainage, IVF infusing, pt denies pain, pt and family oriented to unit.
[2025-05-30] MEDS: TYLENOL PO (00:04)
[2025-05-30] MEDS: TORADOL IV (01:59)
[2025-05-30 03:00] VITALS: BP 114/61
[2025-05-30] MEDS: NORMOSOL-R/PLASMALYTE-A 1000 IV ×2 (05:10→15:48)
[2025-05-30] MEDS: TYLENOL 650 MG PO ×5 (05:10→20:37)
[2025-05-30] MEDS: DILAUDID 0.5 MG IV (05:24)
[2025-05-30 06:00] VITALS: BMI 18.4
[2025-05-30 07:30] VITALS: BP 121/56
[2025-05-30 09:04] LABS: Hematocrit 29.2 % (39.0-52.0); Hemoglobin 8.0 g/dL (13.0-18.0); Mean Corp Hgb Conc. 27.4 g/dL (33.0-37.0); Mean Corpuscular Volume 73.2 fL (80.0-94.0); Nucleated Red Blood Cells % 0 % (-); Platelet Count 352 10^3/uL (130-400)
[2025-05-30 09:06] LABS: Blood Urea Nitrogen 11 mg/dl (9-20); Calcium 7.8 mg/dl (8.4-10.2); Carbon Dioxide 21 mmol/L (22-30); Chloride 107 mmol/L (98-107); Estimated Creatinine Clearance 93 ml/min; Glucose 87 mg/dl (70-99); Magnesium 2.8 mg/dl (1.6-2.3); Potassium 4.9 mmol/L (3.5-5.1); Sodium 135 mmol/L (135-145); eGFR > 60.00
[2025-05-30 09:26] VITALS: BMI 18.4
[2025-05-30] MEDS: PROTONIX IV 40 MG IV (09:51)
[2025-05-30] MEDS: NSS (PRESERVATIVE FREE) 10 ML IV (09:51)
[2025-05-30] MEDS: TORADOL 10 MG IV ×3 (09:52→20:37)
--- NOTE | 2025-05-30 10:38 | W.PN.CRS1 ---
Today's Communication / Plan
-
clears
oob
repeat H/H at noon
d/c raygoza
Assessment/Plan
-
POD#1 Right colectomy
Vitals normal.
WBC: 9.5, Hgb 7.9 (8.0)
-OOB as tolerated
-Advance to clears
-D/C raygoza
-Continue IVFs
-Await OR pathology
-Eventual chest CT as an outpatient
-Repeat labs at noon (anemia)
-TEDS/SCDS for dvt prophylaxis, holding Lovenox
Subjective Data
Procedure
05/29/2025- right colectomy
Subjective Data
Date of Service: May 30, 2025
Patient states he is not in much pain. He is hungry. He has not passed anything yet. Denies nausea or vomiting.
Objective Data
-
Vital Signs
Temp Pulse Resp BP Pulse Ox
97.8 F 65 16 121/56 99
05/30/25 07:30 05/30/25 07:30 05/30/25 07:30 05/30/25 07:30 05/30/25 07:30
Intake & Output
05/29/25 05/30/25 05/31/25
06:59 06:59 06:59
Intake Total 1310 / 1310 1320 / 1320
Output Total 825 / 825
Balance 1310 / 1310 495 / 495
Intake:
Oral fluids 1200 / 1200 120 / 120
IV fluids (Total) 1200 / 1200
normosol 100 / 100
IV piggybacks 110 / 110
Output:
Urine, Raygoza 825 / 825
Other:
Number of approximated MODERATE 4 1
amounts of urine
Lab Results
05/30/25 07:21
05/30/25 07:21
Physical Exam
-
General: No Acute Distress
Abdomen: Soft, Non Distended and Non Tender
Skin: Warm and Dry
--- NOTE | 2025-05-30 10:54 | PN.CDI ---
CDI
- -
CDI:
Physician Documentation Request
Admit Date: 05/25/25 12:20
Dear Doctor Capri,
Patient progress notes include 'Severe microcytic anemia with iron deficiency '
Stool is heme positive. Patient is status post 3 units PRBC
Surgery note 05/29 states 'A CT scan of the chest will be performed postoperatively and will not alter the surgical plan, as he has bleeding and a partial obstruction'
Could you clarify which of the following is the most likely type of anemia you are evaluating, monitoring and/or treating?
Acute blood loss anemia with microcytic anemia with iron deficiency
microcytic anemia with iron deficiency only
Other
Use of terms such as suspected, likely, concern for, or probable (associated with a specific diagnosis that is being evaluated, monitored, or treated as if it exists) are acceptable and can be coded in the inpatient setting, when documented at the
time of discharge.
Thank you,
Roma Valero RN, BSN
CDI Specialist
tiger text
Please use your independent medical judgment in providing your response.
[2025-05-30 11:15] VITALS: BP 117/50
--- NOTE | 2025-05-30 11:21 | W.PN.HOSP.TC ---
Today's Communication/Plan
-
Monitor for diet tolerance
Pain control
Trend hemoglobin
Surgery recs
Assessment / Plan
Assessment / Plan
General: No Apparent Distress
HEENT: Normocephalic, Atraumatic and Moist Mucous Membranes
Respiratory: Clear to Auscultation
Cardiac: Regular Rhythm and S1/S2; Negative Murmur, Rub or Gallop
GI: Mid abdominal scar covered with Aquacel dressing. Tender to palpation left upper and lower quadrants
Rectal: Deferred by Provider
Musculoskeletal: No Clubbing, No Cyanosis and No Edema
Skin: Negative Rash
Neuro: Awake, Alert, Oriented, AO x 3, No Motor Deficits and Nonfocal/Grossly Intact
Psych: Calm
#Colonic mass
Colonoscopy shows A fungating partially obstructing large mass was found in the cecum and in the ascending colon. The mass was circumferential.
CT of the abdomen pelvis findings of a right colon mass noted. Follow biopsy report.
CEA 0.71
Status post right hemicolectomy on 05/29/[address] Orlando. Postop note mention no obvious peritoneal disease or hepatic metastasis noted
Pain control.
Clears. Diet per surgery
Trend hemoglobin closely
#Severe symptomatic anemia causing exertional shortness of breath likely secondary to colonic mass
No clinical evidence of acute coronary syndrome nor acute heart failure.
Feeling improved after transfusion.
#Severe microcytic anemia with iron deficiency
Ferritin very low. Heme positive stools. Suspect chronic GI bleed. Hemodynamically stable.
Status post 3 units of PRBC with improvement in hemoglobin.
Transfuse to keep hemoglobin more than 7.
Continue with IV iron. S/p EGD without any source of bleeding.
#Primary hypertension
patient symptomatic when he was resumed on ARB last week.
Hold for now pre-op.
may need IV prn meds post op
Full code
DVT ppx-Lovenox
Anticipated Discharge: > 48 hours
Subjective/Interval History
-
Date of Service: May 30, 2025
States of abdominal pain
States of belching
Denies passing flatulence
Objective Data
-
Labs:
Laboratory Results
05/30/25
07:21
WBC 9.5
Hgb 8.0 L
Hct 29.2 L
Plt Count 352
Sodium 135
Potassium 4.9
Chloride 107
Carbon Dioxide 21 L
BUN 11
Creatinine 0.7
Glucose 87
Calcium 7.8 L
Vital Signs:
Vital Signs
Temp Pulse Resp BP Pulse Ox
97.8 F 65 16 121/56 99
05/30/25 07:30 05/30/25 07:30 05/30/25 07:30 05/30/25 07:30 05/30/25 07:30
I&O
05/29/25 05/30/25 05/31/25
06:59 06:59 06:59
Intake Total 1310 / 1310 1320 / 1320 540 / 540
Output Total 825 / 825
Balance 1310 / 1310 495 / 495 540 / 540
Data Reviewed
-
Total Time Spent with Patient (in minutes): 55
--- NOTE | 2025-05-30 11:34 | CM ---
Reviewed the chart notes and spoke with the patient at the bedside. CM consult received for Eliquis 2.5mg po bid garcia check. CM spoke with the pharmacist. Per pharmacist, he would need an actual script to run for cost. PAUL TT with the above
information. [employer] record reflects $0.00 cost. CM continues to be available to patient/family and is monitoring medical plan for needs at discharge.
Plan: Discharge to home when medically stable.
[2025-05-30 13:05] LABS: Hematocrit 28.4 % (39.0-52.0); Hemoglobin 7.9 g/dL (13.0-18.0)
[2025-05-30 15:35] VITALS: BP 111/54
[2025-05-30 23:24] VITALS: BP 114/60
[2025-05-31] MEDS: TYLENOL PO ×2 (00:50→04:01)
[2025-05-31] MEDS: TORADOL 10 MG IV ×4 (02:17→20:06)
[2025-05-31] MEDS: NORMOSOL-R/PLASMALYTE-A 1000 IV ×3 (04:00→23:18)
[2025-05-31 06:00] VITALS: BMI 19.1
[2025-05-31 06:19] VITALS: BP 117/69; BP 121/61; BP 126/62; PULSE 77; PULSE 80; PULSE 84
[2025-05-31 07:07] LABS: Hematocrit 27.2 % (39.0-52.0); Hemoglobin 7.7 g/dL (13.0-18.0); Mean Corp Hgb Conc. 28.3 g/dL (33.0-37.0); Mean Corpuscular Volume 72.0 fL (80.0-94.0); Nucleated Red Blood Cells % 0 % (-); Platelet Count 309 10^3/uL (130-400)
[2025-05-31 07:24] LABS: Blood Urea Nitrogen 11 mg/dl (9-20); Calcium 7.7 mg/dl (8.4-10.2); Carbon Dioxide 27 mmol/L (22-30); Chloride 108 mmol/L (98-107); Estimated Creatinine Clearance 96 ml/min; Glucose 96 mg/dl (70-99); Potassium 4.1 mmol/L (3.5-5.1); Sodium 135 mmol/L (135-145); eGFR > 60.00
[2025-05-31 07:30] VITALS: BP 112/54
--- NOTE | 2025-05-31 08:09 | W.PN.CRS1 ---
Today's Communication / Plan
-
continue clears
oob
prolonged DVT prophylaxis
Assessment/Plan
-
POD#2 Right colectomy
Vitals normal.
WBC: 5.9, Hgb 7.7 (7.9)
-OOB as tolerated
-Continue clears until GI function returns
-Voiding after Villanueva removed
-Continue IVFs
-Await OR pathology
-Eventual chest CT as an outpatient
-Ambulate
-TEDS/SCDS for dvt prophylaxis, Lovenox restarted
Subjective Data
Procedure
05/29/2025- right colectomy
Subjective Data
Date of Service: May 31, 2025
Still with abdominal pain but reasonably controlled with Tylenol and Toradol. He was not aware he had to ask for Dilaudid. Tolerating clear liquids. No flatus/bm.
Objective Data
-
Vital Signs
Temp Pulse Resp BP Pulse Ox
98.0 F 79 16 114/60 96
05/30/25 23:24 05/30/25 23:24 05/30/25 23:24 05/30/25 23:24 05/30/25 23:24
Intake & Output
05/30/25 05/31/25 06/01/25
06:59 06:59 06:59
Intake Total 1320 / 1320 3960 / 3960
Output Total 825 / 825 475 / 475
Balance 495 / 495 3485 / 3485
Intake:
Oral fluids 120 / 120 1560 / 1560
IV fluids (Total) 1200 / 1200 1200 / 1200
normosol 100 / 100
IV piggybacks 1200 / 1200
Output:
Urine, Villanueva 825 / 825 75 / 75
Urine, Voided 400 / 400
Other:
Number of approximated MODERATE 1 2
amounts of urine
Lab Results
05/31/25 06:33
05/31/25 06:33
Physical Exam
-
General: No Acute Distress
Abdomen: Soft, Non Distended and Non Tender
Extremities: No Calf Tenderness
Wound: Dressing in Place
[2025-05-31] MEDS: NSS (PRESERVATIVE FREE) 10 ML IV (08:57)
[2025-05-31] MEDS: TYLENOL 650 MG PO ×5 (08:57→23:18)
[2025-05-31] MEDS: PROTONIX IV 40 MG IV (08:57)
--- NOTE | 2025-05-31 11:17 | CM ---
Reviewed the chart notes and spoke with the patient at the bedside. CM continues to be available to patient/family and is monitoring medical plan for needs at discharge.
Plan: Discharge to home when medically stable. No needs anticipated at this time.
--- NOTE | 2025-05-31 11:37 | W.PN.HOSP.TC ---
Addendum entered and electronically signed by Mart Farooq MD 05/31/25 13:38:
Severe microcytic anemia with iron deficiency and with blood loss anemia
Original Note:
Today's Communication/Plan
-
clears
oob/dvt ppx
IVF
trend cbc
Assessment / Plan
Assessment / Plan
General: No Apparent Distress
HEENT: Normocephalic, Atraumatic and Moist Mucous Membranes
Respiratory: Clear to Auscultation
Cardiac: Regular Rhythm and S1/S2; Negative Murmur, Rub or Gallop
GI: Mid abdominal scar covered with Aquacel dressing. Tender to palpation left upper and lower quadrants
Rectal: Deferred by Provider
Musculoskeletal: No Clubbing, No Cyanosis and No Edema
Skin: Negative Rash
Neuro: Awake, Alert, Oriented, AO x 3, No Motor Deficits and Nonfocal/Grossly Intact
Psych: Calm
#Colonic mass
Colonoscopy shows A fungating partially obstructing large mass was found in the cecum and in the ascending colon. The mass was circumferential.
CT of the abdomen pelvis findings of a right colon mass noted. Follow biopsy report.
CEA 0.71
IV PPI
Status post right hemicolectomy on 05/29/[address] Orlando. Postop note mention no obvious peritoneal disease or hepatic metastasis noted
Pain control. IVF. OOB/ambulation encouraged
Clears. Diet per surgery
Path report pending
Trend hemoglobin closely
eventual further imaging for stating purpose
OP onc f/u once path finalizes
#Severe symptomatic anemia causing exertional shortness of breath likely secondary to colonic mass
No clinical evidence of acute coronary syndrome nor acute heart failure.
Feeling improved after transfusion.
#Severe microcytic anemia with iron deficiency
Ferritin very low. Heme positive stools. Suspect chronic GI bleed. Hemodynamically stable.
Status post 3 units of PRBC with improvement in hemoglobin.
Transfuse to keep hemoglobin more than 7.
Continue with IV iron. S/p EGD without any source of bleeding.
#Primary hypertension
patient symptomatic when he was resumed on ARB last week.
Hold for now pre-op.
may need IV prn meds post op
Full code
DVT ppx-Lovenox
Anticipated Discharge: > 48 hours
Subjective/Interval History
-
Date of Service: May 31, 2025
states of abd pain
Denies passing flatulence or having bowel movement
States that belching
Objective Data
-
Labs:
Laboratory Results
05/31/25
06:33
WBC 5.9
Hgb 7.7 L
Hct 27.2 L
Plt Count 309
Sodium 135
Potassium 4.1
Chloride 108 H
Carbon Dioxide 27
BUN 11
Creatinine 0.7
Glucose 96
Calcium 7.7 L
Vital Signs:
Vital Signs
Temp Pulse Resp BP Pulse Ox
97.8 F 72 16 112/54 98
05/31/25 07:30 05/31/25 07:30 05/31/25 07:30 05/31/25 07:30 05/31/25 10:13
I&O
05/30/25 05/31/25 06/01/25
06:59 06:59 06:59
Intake Total 1320 / 1320 3960 / 3960
Output Total 825 / 825 475 / 475
Balance 495 / 495 3485 / 3485
[2025-05-31 11:40] LABS: tTG IgA Antibody 5.2 EU/ml (0-19); tTG IgG Antibody 6.7 EU/ml (0-19)
[2025-05-31 15:30] VITALS: BP 124/65
[2025-05-31] MEDS: LOVENOX 40 MG SC (17:22)
[2025-05-31 23:15] VITALS: BP 125/64
[2025-06-01] MEDS: TORADOL 10 MG IV ×3 (01:58→13:58)
[2025-06-01] MEDS: TYLENOL 650 MG PO ×4 (04:10→16:57)
[2025-06-01 06:00] VITALS: BMI 19.5
--- NOTE | 2025-06-01 07:01 | PTCARENOTE ---
pt refusing to ambulate, educated .
[2025-06-01 07:05] LABS: Hematocrit 27.3 % (39.0-52.0); Hemoglobin 8.0 g/dL (13.0-18.0); Mean Corp Hgb Conc. 29.3 g/dL (33.0-37.0); Mean Corpuscular Volume 71.8 fL (80.0-94.0); Nucleated Red Blood Cells % 0 % (-); Platelet Count 324 10^3/uL (130-400)
[2025-06-01 07:14] LABS: Blood Urea Nitrogen 10 mg/dl (9-20); Calcium 7.8 mg/dl (8.4-10.2); Carbon Dioxide 28 mmol/L (22-30); Chloride 108 mmol/L (98-107); Estimated Creatinine Clearance 98 ml/min; Glucose 78 mg/dl (70-99); Potassium 4.3 mmol/L (3.5-5.1); Sodium 136 mmol/L (135-145); eGFR > 60.00
[2025-06-01 08:00] VITALS: BP 129/76
[2025-06-01] MEDS: NORMOSOL-R/PLASMALYTE-A 1000 IV ×2 (08:53→18:24)
[2025-06-01] MEDS: PROTONIX IV 40 MG IV (08:55)
[2025-06-01] MEDS: NSS (PRESERVATIVE FREE) 10 ML IV (08:55)
--- NOTE | 2025-06-01 10:13 | W.PN.CRS1 ---
Today's Communication / Plan
-
await return of bowel function
continue clears for now
Assessment/Plan
-
POD#3 Right colectomy
Vitals normal.
WBC: 5.8, Hgb 8.0 (7.7, 7.9)
-OOB as tolerated
-Continue clears until GI function returns. Please notify provider when returns and will consider bumping his diet up to fulls. Maintain clears for now.
-Voiding after Villanueva removed
-Continue IVFs
-Await OR pathology
-Eventual chest CT as an outpatient
-Ambulate
-TEDS/SCDS for dvt prophylaxis, continue Lovenox.
-CM for ?eliquis as outpatient - depends on cost
Subjective Data
Procedure
05/29/2025- right colectomy
Subjective Data
Date of Service: June 01, 2025
Patient states he is hungry. Denies gas or bowel movements. He has some pain but it is controlled.
Objective Data
-
Vital Signs
Temp Pulse Resp BP Pulse Ox
97.9 F 97 16 129/76 97
06/01/25 08:00 06/01/25 08:00 06/01/25 08:00 06/01/25 08:00 06/01/25 08:00
Intake & Output
05/31/25 06/01/25 06/02/25
06:59 06:59 06:59
Intake Total 3960 / 3960 3360 / 3360
Output Total 475 / 475
Balance 3485 / 3485 3360 / 3360
Intake:
Oral fluids 1560 / 1560 960 / 960
IV fluids (Total) 1200 / 1200 2400 / 2400
IV piggybacks 1200 / 1200
Output:
Urine, Villan[place]va 75 / 75
Urine, Voided 400 / 400
Other:
Number of approximated MODERATE 2 4
amounts of urine
Number of approximated LARGE 3
amounts of urine
Lab Results
06/01/25 06:34
06/01/25 06:34
Physical Exam
-
General: No Acute Distress and AOx3
Abdomen: Soft, Non Distended and Non Tender
Skin: Warm and Dry
Wound: No Signs of Infection (Dressing removed jackie in place)
--- NOTE | 2025-06-01 10:37 | W.PN.HOSP.TC ---
Today's Communication/Plan
-
Continue with clears
IV fluids
Await for return of bowel function
Out of bed/ambulation encouraged
Assessment / Plan
Assessment / Plan
General: No Apparent Distress
HEENT: Normocephalic, Atraumatic and Moist Mucous Membranes
Respiratory: Clear to Auscultation
Cardiac: Regular Rhythm and S1/S2; Negative Murmur, Rub or Gallop
GI: Mid abdominal scar covered with Aquacel dressing. Tender to palpation
Rectal: Deferred by Provider
Musculoskeletal: No Clubbing, No Cyanosis and No Edema
Skin: Negative Rash
Neuro: Awake, Alert, Oriented, AO x 3, No Motor Deficits and Nonfocal/Grossly Intact
Psych: Calm
#Colonic mass
Colonoscopy shows A fungating partially obstructing large mass was found in the cecum and in the ascending colon. The mass was circumferential.
CT of the abdomen pelvis findings of a right colon mass noted. Follow biopsy report.
CEA 0.71
IV PPI
Status post right hemicolectomy on 05/29/[address] Orlando. Postop note mention no obvious peritoneal disease or hepatic metastasis noted
Pain control. IVF. OOB/ambulation encouraged
Clears. Diet per surgery
OR Path report pending
Trend hemoglobin closely
eventual further imaging for stating purpose
OP onc f/u once path finalizes
#Severe symptomatic anemia causing exertional shortness of breath likely secondary to colonic mass
No clinical evidence of acute coronary syndrome nor acute heart failure.
Feeling improved after transfusion.
#Severe microcytic anemia with iron deficiency
Ferritin very low. Heme positive stools. Suspect chronic GI bleed. Hemodynamically stable.
Status post 3 units of PRBC with improvement in hemoglobin.
Transfuse to keep hemoglobin more than 7.
s/p IV iron 5d course. S/p EGD without any source of bleeding.
#Primary hypertension
patient symptomatic when he was resumed on ARB last week.
Hold for now pre-op.
may need IV prn meds post op
Full code
DVT ppx-Lovenox
Anticipated Discharge: > 48 hours
Subjective/Interval History
-
Date of Service: June 01, 2025
No bowel movement
Denies passing flatulence
Tolerating clears
Remains with abdominal pain
Objective Data
-
Labs:
Laboratory Results
06/01/25
06:34
WBC 5.8
Hgb 8.0 L
Hct 27.3 L
Plt Count 324
Sodium 136
Potassium 4.3
Chloride 108 H
Carbon Dioxide 28
BUN 10
Creatinine 0.7
Glucose 78
Calcium 7.8 L
Vital Signs:
Vital Signs
Temp Pulse Resp BP Pulse Ox
97.9 F 97 16 129/76 97
06/01/25 08:00 06/01/25 08:00 06/01/25 08:00 06/01/25 08:00 06/01/25 08:00
I&O
05/31/25 06/01/25 06/02/25
06:59 06:59 06:59
Intake Total 3960 / 3960 3360 / 3360
Output Total 475 / 475
Balance 3485 / 3485 3360 / 3360
--- NOTE | 2025-06-01 10:42 | CM ---
Reviewed the chart notes and spoke with the patient at the bedside. Cost for Eliquis is $0 per patient's pharmacy. CM continues to be available to patient/family and is monitoring medical plan for needs at discharge.
Plan: Discharge to home when medically stable. No additional needs identified at this time.
[2025-06-01 15:53] VITALS: BP 136/74
[2025-06-01] MEDS: ZOFRAN 4 MG IV (16:35)
[2025-06-01] MEDS: LOVENOX 40 MG SC (17:58)
--- NOTE | 2025-06-01 18:21 | PTCARENOTE ---
Pt c/o nausea after lunch. Zofran given. Pt still feeling nauseous. No flatus yet. Dr. Myrick notified. NPO order in. Care ongoing.
[2025-06-01] MEDS: TYLENOL PO (19:56)
[2025-06-01] MEDS: DILAUDID 1 MG IV (19:58)
[2025-06-01] MEDS: TORADOL IV (21:00)
[2025-06-01 23:00] VITALS: BP 132/69
[2025-06-02] MEDS: TYLENOL PO ×4 (00:20→11:56)
[2025-06-02] MEDS: TORADOL 10 MG IV ×4 (02:32→20:01)
--- NOTE | 2025-06-02 03:07 | PTCARENOTE ---
Discussed with pt the need to ambulate post surgery for recovery and suggested pt get out of bed this evening to go for a walk around the unit. Pt stated he walked four rounds around the unit earlier today and is exhausted. Pt was also medicated
earlier for '20/10' pain. Pt immediately vomitted small amount of liquid. Zofran could not yet be given, however, pt stated feeling better after vomiting and stated he didn't need the zofran. Care ongoing.
[2025-06-02] MEDS: NORMOSOL-R/PLASMALYTE-A 1000 IV (04:30)
[2025-06-02 06:00] VITALS: BMI 19.9
[2025-06-02 07:29] LABS: Hematocrit 28.3 % (39.0-52.0); Hemoglobin 8.1 g/dL (13.0-18.0); Mean Corp Hgb Conc. 28.6 g/dL (33.0-37.0); Mean Corpuscular Volume 73.7 fL (80.0-94.0); Nucleated Red Blood Cells % 0 % (-); Platelet Count 306 10^3/uL (130-400)
[2025-06-02 07:37] LABS: Blood Urea Nitrogen 10 mg/dl (9-20); Calcium 7.6 mg/dl (8.4-10.2); Carbon Dioxide 25 mmol/L (22-30); Chloride 109 mmol/L (98-107); Estimated Creatinine Clearance 100 ml/min; Glucose 60 mg/dl (70-99); Potassium 4.4 mmol/L (3.5-5.1); Sodium 135 mmol/L (135-145); eGFR > 60.00
[2025-06-02 07:55] VITALS: BP 143/77
[2025-06-02] MEDS: PROTONIX IV 40 MG IV (08:10)
[2025-06-02] MEDS: NSS (PRESERVATIVE FREE) 10 ML IV (08:10)
[2025-06-02] MEDS: DEXTROSE 50% SYRINGE 12.5 GRAMS IV (08:15)
[2025-06-02 08:41] LABS: Glucose - Point of Care 95 mg/dl (70-99)
--- NOTE | 2025-06-02 09:36 | CM ---
Reviewed the chart notes. CM continues to be available to patient/family and is monitoring medical plan for needs at discharge.
Plan: Discharge to home when medically stable. No additional needs identified at this time.
--- NOTE | 2025-06-02 10:22 | W.PN.CRS1 ---
Today's Communication / Plan
-
Abdominal series.
Assessment/Plan
-
POD 4.
1. Small amount of emesis last night. No bowel function yet. Question ileus. Will check plain abdominal films. Keep n.p.o. for now. Continue on IV fluids.
2. Vitals and labs reasonable.
3. Encouraged out of bed/ambulation.
4. Continue other measures.
Subjective Data
Procedure
05/29/2025- right colectomy
Subjective Data
Date of Service: June 02, 2025
No flatus or BMs. Had a little emesis last night. Denies nausea or emesis this morning. Denies distention.
Objective Data
-
Vital Signs
Temp Pulse Resp BP Pulse Ox
98.0 F 79 18 143/77 97
06/02/25 07:55 06/02/25 07:55 06/02/25 07:55 06/02/25 07:55 06/02/25 07:55
Intake & Output
06/01/25 06/02/25 06/03/25
06:59 06:59 06:59
Intake Total 3360 / 3360 3120 / 3120
Output Total 50 / 50
Balance 3360 / 3360 3070 / 3070
Intake:
Oral fluids 960 / 960 720 / 720
IV fluids (Total) 2400 / 2400 2400 / 2400
Output:
Urine, Voided 50 / 50
Other:
Number of approximated MODERATE 4 1
amounts of urine
Number of approximated LARGE 3
amounts of urine
Lab Results
06/02/25 06:37
06/02/25 06:37
Physical Exam
-
General: No Acute Distress
Chest: Clear
Cardiovascular: Regular Rate & Rhythm
Abdomen: Distended (Only mild) and Tender (Mild incisional.)
Extremities: No Edema and No Calf Tenderness
Skin: Warm
Incision: Clear, Dry, Intact (Dressing) and No Skin Erythema
[2025-06-02 10:39] LABS: Glucose - Point of Care 76 mg/dl (70-99)
--- NOTE | 2025-06-02 11:02 | W.PN.UPDATE ---
Update Note
Progress Note Update
Abdominal films available for review. Report not in yet. To my eyes there appears to be substantial small and possible large bowel distention, perhaps most consistent with ileus. Also some right-sided subdiaphragmatic free air which I believe is
post surgical. Will put in an order for an NG tube. The patient was made aware earlier in the day of this possibility. Nursing updated as well.
[2025-06-02] MEDS: D5LR 1000 IV ×2 (11:54→21:17)
[2025-06-02 12:29] LABS: Glucose - Point of Care 71 mg/dl (70-99)
--- NOTE | 2025-06-02 13:02 | W.PN.HOSP.TC ---
Today's Communication/Plan
-
Diet downgraded
Continue with NG tube
Monitor NG tube output
Await for return of bowel function
Transition fluid to D5 LR
Monitor electrolytes closely
Trend hemoglobin
Assessment / Plan
Assessment / Plan
General: No Apparent Distress
HEENT: Normocephalic, Atraumatic and Moist Mucous Membranes
Respiratory: Clear to Auscultation
Cardiac: Regular Rhythm and S1/S2; Negative Murmur, Rub or Gallop
GI: Mid abdominal scar. Tender to palpation
Rectal: Deferred by Provider
Musculoskeletal: No Clubbing, No Cyanosis and No Edema
Skin: Negative Rash
Neuro: Awake, Alert, Oriented, AO x 3, No Motor Deficits and Nonfocal/Grossly Intact
Psych: Calm
#Colonic mass
Colonoscopy shows A fungating partially obstructing large mass was found in the cecum and in the ascending colon. The mass was circumferential.
CT of the abdomen pelvis findings of a right colon mass noted. Follow biopsy report.
CEA 0.71
IV PPI
Status post right hemicolectomy on 05/29/[address] Orlando. Postop note mention no obvious peritoneal disease or hepatic metastasis noted
Pain control. IVF. OOB/ambulation encouraged
Now with postop ileus. Status post NG tube placement.
OR Path report pending
Trend hemoglobin closely
eventual further imaging for staging purpose
OP onc f/u once path finalizes
Diet downgraded to NPO. IV fluid transition with D5
CRS following
#Severe symptomatic anemia causing exertional shortness of breath likely secondary to colonic mass
No clinical evidence of acute coronary syndrome nor acute heart failure.
Feeling improved after transfusion.
#Severe microcytic anemia with iron deficiency
Ferritin very low. Heme positive stools. Suspect chronic GI bleed. Hemodynamically stable.
Status post 3 units of PRBC with improvement in hemoglobin.
Transfuse to keep hemoglobin more than 7.
s/p IV iron 5d course. S/p EGD without any source of bleeding.
#Primary hypertension
patient symptomatic when he was resumed on ARB last week.
Hold for now
may need IV prn meds post op
Full code
DVT ppx-Lovenox
Anticipated Discharge: > 48 hours
Subjective/Interval History
-
Date of Service: June 02, 2025
Episode of nausea and vomiting overnight.
States felt better after episode of vomiting
No bowel movements
Remains with abdominal pain
Objective Data
-
Labs:
Laboratory Results
06/02/25
06:37
WBC 5.0
Hgb 8.1 L
Hct 28.3 L
Plt Count 306
Sodium 135
Potassium 4.4
Chloride 109 H
Carbon Dioxide 25
BUN 10
Creatinine 0.7
Glucose 60 L
Calcium 7.6 L
Vital Signs:
Vital Signs
Temp Pulse Resp BP Pulse Ox
98.0 F 79 18 143/77 97
06/02/25 07:55 06/02/25 07:55 06/02/25 07:55 06/02/25 07:55 06/02/25 07:55
I&O
06/01/25 06/02/25 06/03/25
06:59 06:59 06:59
Intake Total 3360 / 3360 3120 / 3120
Output Total 50 / 50
Balance 3360 / 3360 3070 / 3070
Data Reviewed
-
Total Time Spent with Patient (in minutes): 55
[2025-06-02] MEDS: DILAUDID 0.5 MG IV (15:34)
[2025-06-02 15:35] VITALS: BP 143/73
[2025-06-02] MEDS: LOVENOX 40 MG SC (17:49)
[2025-06-02 18:05] LABS: Glucose - Point of Care 97 mg/dl (70-99)
[2025-06-02 23:00] VITALS: BP 138/72
[2025-06-02 23:54] LABS: Glucose - Point of Care 118 mg/dl (70-99)
[2025-06-03] MEDS: TORADOL 10 MG IV ×2 (02:30→12:41)
[2025-06-03 02:53] LABS: Glucose - Point of Care 109 mg/dl (70-99)
--- NOTE | 2025-06-03 03:24 | PTCARENOTE ---
Pt reports passing flatus @ this time, voiding without difficulty, mild pain RLQ denies n/v.
[2025-06-03 06:06] LABS: Glucose - Point of Care 107 mg/dl (70-99)
[2025-06-03 07:15] VITALS: BP 138/78
[2025-06-03 07:51] LABS: Hematocrit 32.0 % (39.0-52.0); Hemoglobin 9.0 g/dL (13.0-18.0); Mean Corp Hgb Conc. 28.1 g/dL (33.0-37.0); Mean Corpuscular Volume 74.2 fL (80.0-94.0); Nucleated Red Blood Cells % 0 % (-); Platelet Count 339 10^3/uL (130-400)
[2025-06-03 08:17] LABS: Blood Urea Nitrogen 6 mg/dl (9-20); Calcium 8.0 mg/dl (8.4-10.2); Carbon Dioxide 27 mmol/L (22-30); Chloride 108 mmol/L (98-107); Estimated Creatinine Clearance 101 ml/min; Glucose 100 mg/dl (70-99); Magnesium 2.3 mg/dl (1.6-2.3); Potassium 4.1 mmol/L (3.5-5.1); Sodium 135 mmol/L (135-145); eGFR > 60.00
[2025-06-03 08:49] VITALS: BP 159/84; PULSE 95; O2SAT 95
[2025-06-03] MEDS: D5LR 1000 IV ×2 (09:08→16:56)
[2025-06-03] MEDS: NSS (PRESERVATIVE FREE) 10 ML IV (09:10)
[2025-06-03] MEDS: TORADOL IV (09:10)
[2025-06-03] MEDS: PROTONIX IV 40 MG IV (09:11)
[2025-06-03] MEDS: DILAUDID 0.5 MG IV ×2 (09:16→16:56)
[2025-06-03 10:19] LABS: Glycohemoglobin (HgbA1c) 4.6 % (4.0-5.6)
--- NOTE | 2025-06-03 11:26 | W.PN.HOSP.TC ---
Today's Communication/Plan
-
Continue with conservative management. Bowel rest.
Monitor NG tube output.
Continue with IV fluids.
Encourage out of bed ambulation
Assessment / Plan
Assessment / Plan
General: No Apparent Distress
HEENT: Normocephalic, Atraumatic and Moist Mucous Membranes
Respiratory: Clear to Auscultation
Cardiac: Regular Rhythm and S1/S2;
GI: Mid abdominal scar. Tender to palpation, NG tube with biliary drainage noted
Rectal: Deferred by Provider
Musculoskeletal: No Clubbing, No Cyanosis and No Edema
Skin: Negative Rash
Neuro: Awake, Alert, Oriented, AO x 3, No Motor Deficits and Nonfocal/Grossly Intact
Psych: Calm
#Colonic mass
Colonoscopy shows A fungating partially obstructing large mass was found in the cecum and in the ascending colon. The mass was circumferential.
CT of the abdomen pelvis findings of a right colon mass noted. Follow biopsy report.
CEA 0.71
IV PPI
Status post right hemicolectomy on 05/29/[address] Orlando. Postop note mention no obvious peritoneal disease or hepatic metastasis noted
Pain control. IVF. OOB/ambulation encouraged
Now with postop ileus. Status post NG tube placement.
OR Path report pending
Trend hemoglobin closely
eventual further imaging for staging purpose
OP onc f/u once path finalizes
Diet downgraded to NPO. IV fluid transition with D5
CRS following
#Severe symptomatic anemia causing exertional shortness of breath likely secondary to colonic mass
No clinical evidence of acute coronary syndrome nor acute heart failure.
Feeling improved after transfusion.
#Severe microcytic anemia with iron deficiency
Ferritin very low. Heme positive stools. Suspect chronic GI bleed. Hemodynamically stable.
Status post 3 units of PRBC with improvement in hemoglobin.
Transfuse to keep hemoglobin more than 7.
s/p IV iron 5d course. S/p EGD without any source of bleeding.
#Primary hypertension
patient symptomatic when he was resumed on ARB last week.
Hold for now
may need IV prn meds post op
Full code
DVT ppx-Lovenox
Anticipated Discharge: > 48 hours
Subjective/Interval History
-
Date of Service: June 03, 2025
Remains with significant NG tube output
Says passing flatulence
Ambulating in the hallway without any difficulty
Remains with abdominal discomfort
Objective Data
-
Labs:
Laboratory Results
06/03/25
06:13
WBC 4.7 L
Hgb 9.0 L
Hct 32.0 L
Plt Count 339
Sodium 135
Potassium 4.1
Chloride 108 H
Carbon Dioxide 27
BUN 6 L
Creatinine 0.7
Glucose 100 H
Calcium 8.0 L
Vital Signs:
Vital Signs
Temp Pulse Resp BP Pulse Ox
98.3 F 85 16 138/78 97
06/03/25 07:15 06/03/25 07:15 06/03/25 07:15 06/03/25 07:15 06/03/25 07:15
I&O
06/02/25 06/03/25 06/04/25
06:59 06:59 06:59
Intake Total 3120 / 3120 1350 / 1350
Output Total 50 / 50 550 / 550
Balance 3070 / 3070 800 / 800
[2025-06-03 12:04] LABS: Glucose - Point of Care 110 mg/dl (70-99)
--- NOTE | 2025-06-03 12:26 | W.PN.GS2 ---
Today's Communication / Plan
-
-- NPO, NGT
Assessment / Plan
-
Patient is a 64 yo M POD#5 s/p open RIGHT colectomy
AVSS
Labs reactive leukopenia, mild elevation in Hb, normal platelet count, stable renal function
Issues with postop ileus. NGT in place continue with abdominal rest and await for more consistent recovery.
-- NPO, NGT
-- IVF resuscitation
-- Pain control: Tylenol, Toradol, IV Dialudid PRN
-- DVT; Lovenox
-- GI: PPI
Subjective Data
-
Date of Service: June 03, 2025
Feels improved with NGT decompression. Passing flatus. No nausea or vomiting. Stable abdominal discomfort.
Objective Data
-
Intake and Output
06/02/25 06/03/25 06/04/25
06:59 06:59 06:59
Intake Total 3120 / 3120 1350 / 1350
Output Total 50 / 50 550 / 550
Balance 3070 / 3070 800 / 800
Intake:
Oral fluids 720 / 720 1200 / 1200
IV fluids (Total) 2400 / 2400
Amount instilled into GI Tube ( 150 / 150
Total)
[place] Sump 150 / 150
Output:
Gastrointestinal tube output ( 450 / 450
Total)
[place] Sump 450 / 450
Urine, Voided 50 / 50 100 / 100
Other:
Number of approximated MODERATE 1 1
amounts of urine
Vital Signs
Temp Pulse Resp BP Pulse Ox
98.3 F 85 16 138/78 97
06/03/25 07:15 06/03/25 07:15 06/03/25 07:15 06/03/25 07:15 06/03/25 07:15
Lab Results
06/03/25 06:13
06/03/25 06:13
Calcium 8.0 mg/dl (8.4-10.2) L 06/03/25 06:13
Magnesium 2.3 mg/dl (1.6-2.3) 06/03/25 06:13
Total Bilirubin 0.6 mg/dl (0.2-1.3) 05/25/25 10:17
AST 13 U/L (17-59) L 05/25/25 10:17
ALT 11 U/L (0-50) 05/25/25 10:17
Alkaline Phosphatase 83 U/L (38-126) 05/25/25 10:17
Total Protein 5.8 g/dl (6.3-8.2) L 05/25/25 10:17
Albumin 3.2 g/dl (3.5-5.0) L 05/25/25 10:17
Physical Exam
-
Gen: NAD
HEENT: bilious NGT output
Abd: soft, moderate tenderness, mild/moderate distension, non-peritoneal, incision c/d/i - no erythema, ecchymosis or drainage
Patient has a raygoza catheter: No
Patient has a central line: No
[2025-06-03 15:30] VITALS: BP 146/81
[2025-06-03] MEDS: LOVENOX 40 MG SC (16:56)
[2025-06-03 18:11] LABS: Glucose - Point of Care 106 mg/dl (70-99)
--- NOTE | 2025-06-03 21:05 | PTCARENOTE ---
Pt right wrist IV infiltrated @ this time, mod swelling hand, IV removed. Pt reports only mild tingling able to move fingers +pulse. Hand elevated on 2 pillows with warm compress. Pt educated on notifying RN with any new onset of discomfort, call
sheth in reach
[2025-06-03 23:00] VITALS: BP 146/75
[2025-06-04 00:21] LABS: Glucose - Point of Care 111 mg/dl (70-99)
[2025-06-04] MEDS: D5LR 1000 IV ×2 (05:24→12:55)
[2025-06-04 06:00] VITALS: BMI 19.5
[2025-06-04 06:20] LABS: Hematocrit 30.6 % (39.0-52.0); Hemoglobin 8.8 g/dL (13.0-18.0); Mean Corp Hgb Conc. 28.8 g/dL (33.0-37.0); Mean Corpuscular Volume 73.6 fL (80.0-94.0); Nucleated Red Blood Cells % 0 % (-); Platelet Count 305 10^3/uL (130-400)
--- NOTE | 2025-06-04 06:25 | PTCARENOTE ---
Pt right hand IV infilitrated leaving +1 edema to hand at beginning of shift, removed and assessed. Pt with mild tingling, neurovascular WNL, elevated hand on pillows with warm compresses. this morning trace edema to hand,neurovascular WNL, denies
any pain.
[2025-06-04 06:27] LABS: Blood Urea Nitrogen < 2 mg/dl (9-20); Calcium 8.2 mg/dl (8.4-10.2); Carbon Dioxide 29 mmol/L (22-30); Chloride 108 mmol/L (98-107); Estimated Creatinine Clearance 98 ml/min; Glucose 91 mg/dl (70-99); Potassium 4.2 mmol/L (3.5-5.1); Sodium 136 mmol/L (135-145); eGFR > 60.00
[2025-06-04 07:30] VITALS: BP 143/74
[2025-06-04] MEDS: PROTONIX IV 40 MG IV (10:10)
[2025-06-04] MEDS: NSS (PRESERVATIVE FREE) 10 ML IV (10:11)
[2025-06-04] MEDS: DILAUDID 0.5 MG IV ×2 (10:11→18:05)
--- NOTE | 2025-06-04 10:44 | W.PN.GS2 ---
Addendum entered and electronically signed by Ze Grijalva MD 06/04/25 10:59:
Patient seen and examined. Agree with assessment plan as documented below.
Denies any worsening abdominal pain. Reports passing flatus and loose stools. No nausea or vomiting. Ambulating. Afebrile.
Gen: NAD
HEENT: NGT with minimal light bilious
Abd: soft, mild tenderness, mild distension, midline c/d/i - no erythema, ecchymosis or drainage, jackie in place
Patient is a 64 yo M POD#6 s/p open RIGHT colectomy for cecal cancer
AVSS
Labs with reactive leukopenia, H/H stable normal platelet count, stable renal function
Ileus improving, now with +flatus/bum
-- D/C NGT
-- NPO with sips of clears for comfort
-- Continue IVF
-- Trend labs/exams
-- Pain control: Tylenol, Toradol, IV Dilaudid PRN
-- DVT; Lovenox
-- GI: PPI
Original Note:
Today's Communication / Plan
-
d/c NGT
sips of clears
Assessment / Plan
-
Patient is a 64 yo M POD#6 s/p open RIGHT colectomy for cecal cancer
AVSS
Labs with reactive leukopenia, H/H stable normal platelet count, stable renal function
Ileus improving, now with +flatus/bum
-- D/C NGT
-- NPO with sips of clears for comfort
-- Continue IVF
-- Trend labs/exams
-- Pain control: Tylenol, Toradol, IV Dilaudid PRN
-- DVT; Lovenox
-- GI: PPI
Subjective Data
-
Date of Service: June 04, 2025
Pt seen and examined at bedside with Dr. Grijalva. Denies n/v. Passing a good amount of flatus. Passed a liquid stool today. Abdominal discomfort to the right side, but improving overall.
Objective Data
-
Intake and Output
06/03/25 06/04/25 06/05/25
06:59 06:59 06:59
Intake Total 1350 / 1350 2430 / 2430 90 / 90
Output Total 550 / 550 100 / 100 150 / 150
Balance 800 / 800 2330 / 2330 -60 / -60
Intake:
Oral fluids 1200 / 1200
IV fluids (Total) 2400 / 2400
Amount instilled into GI Tube ( 150 / 150
Total)
[place] Sump 150 / 150
Output:
Gastrointestinal tube output ( 450 / 450 100 / 100 150 / 150
Total)
[place] Sump 450 / 450 100 / 100 150 / 150
Urine, Voided 100 / 100
Other:
Number of approximated MODERATE 1 2
amounts of urine
Number of approximated LARGE 3
amounts of urine
Number of unmeasured liquid
stools
Rectum 1
Vital Signs
Temp Pulse Resp BP Pulse Ox
98.7 F 87 16 143/74 97
06/04/25 07:30 06/04/25 07:30 06/04/25 07:30 06/04/25 07:30 06/04/25 07:30
Lab Results
06/04/25 05:09
06/04/25 05:09
Calcium 8.2 mg/dl (8.4-10.2) L 06/04/25 05:09
Magnesium 2.3 mg/dl (1.6-2.3) 06/03/25 06:13
Total Bilirubin 0.6 mg/dl (0.2-1.3) 05/25/25 10:17
AST 13 U/L (17-59) L 05/25/25 10:17
ALT 11 U/L (0-50) 05/25/25 10:17
Alkaline Phosphatase 83 U/L (38-126) 05/25/25 10:17
Total Protein 5.8 g/dl (6.3-8.2) L 05/25/25 10:17
Albumin 3.2 g/dl (3.5-5.0) L 05/25/25 10:17
Physical Exam
-
Gen: NAD
HEENT: light NGT output
Abd: soft, mild tenderness R>L, minimal distension, non-peritoneal, incision c/d/i - no erythema, ecchymosis or drainage, jackie intact
Patient has a raygoza catheter: No
Patient has a central line: No
--- NOTE | 2025-06-04 12:05 | W.PN.HOSP.TC ---
Today's Communication/Plan
-
NG tube per surgery
Having bowel movement
Continue with IV fluids
Recommend ambulation
Assessment / Plan
Assessment / Plan
General: No Apparent Distress
HEENT: Normocephalic, Atraumatic and Moist Mucous Membranes
Respiratory: Clear to Auscultation
Cardiac: Regular Rhythm and S1/S2;
GI: Mid abdominal scar. Tender to palpation, NG tube with biliary drainage noted
Rectal: Deferred by Provider
Musculoskeletal: No Clubbing, No Cyanosis and No Edema
Skin: Negative Rash
Neuro: Awake, Alert, Oriented, AO x 3, No Motor Deficits and Nonfocal/Grossly Intact
Psych: Calm
#Colonic mass
Colonoscopy shows A fungating partially obstructing large mass was found in the cecum and in the ascending colon. The mass was circumferential.
CT of the abdomen pelvis findings of a right colon mass noted. Follow biopsy report.
CEA 0.71
IV PPI
Status post right hemicolectomy on 05/29/[address] Orlando. Postop note mention no obvious peritoneal disease or hepatic metastasis noted
Pain control. IVF. OOB/ambulation encouraged
Now with postop ileus. Status post NG tube placement.
OR Path report pending
Trend hemoglobin closely
eventual further imaging for staging purpose
OP onc f/u once path finalizes
Continue with IV fluids. Improvement in bowel function.
CRS following
#Severe symptomatic anemia causing exertional shortness of breath likely secondary to colonic mass
No clinical evidence of acute coronary syndrome nor acute heart failure.
Feeling improved after transfusion.
#Severe microcytic anemia with iron deficiency
Ferritin very low. Heme positive stools. Suspect chronic GI bleed. Hemodynamically stable.
Status post 3 units of PRBC with improvement in hemoglobin.
Transfuse to keep hemoglobin more than 7.
s/p IV iron 5d course. S/p EGD without any source of bleeding.
#Primary hypertension
patient symptomatic when he was resumed on ARB last week.
Hold for now
may need IV prn meds post op
#Episode of hypoglycemia
POC have stabilized
Full code
DVT ppx-Lovenox
Anticipated Discharge: > 48 hours
Subjective/Interval History
-
Date of Service: June 04, 2025
States passing flatulence
States 3 episode of loose diarrhea-like episodes last 24 hours
Objective Data
-
Labs:
Laboratory Results
06/04/25
05:09
WBC 4.4 L
Hgb 8.8 L
Hct 30.6 L
Plt Count 305
Sodium 136
Potassium 4.2
Chloride 108 H
Carbon Dioxide 29
BUN < 2 L
Creatinine 0.7
Glucose 91
Calcium 8.2 L
Vital Signs:
Vital Signs
Temp Pulse Resp BP Pulse Ox
98.7 F 87 16 143/74 97
06/04/25 07:30 06/04/25 07:30 06/04/25 07:30 06/04/25 07:30 06/04/25 07:30
I&O
06/03/25 06/04/25 06/05/25
06:59 06:59 06:59
Intake Total 1350 / 1350 2430 / 2430 90 / 90
Output Total 550 / 550 100 / 100 150 / 150
Balance 800 / 800 2330 / 2330 -60 / -60
[2025-06-04 12:19] LABS: Glucose - Point of Care 114 mg/dl (70-99)
--- NOTE | 2025-06-04 14:46 | PTOTSP ---
PATIENT WITH NG TUBE OUT, ABLE TO TOLERATE INCREASED MOBILITY THIS SESSION INCLUDING 20 STEPS WHICH HE HAS TO GET UP TO HIS 3RD FLOOR CONDO. PATIENT MOBILIZING INDEPENDENTLY WITHOUT A DEVICE AND REQUIRES NO FURTHER ACUTE CARE SKILLED P.T. PATIENT
AND RN AWARE THAT HE WILL BE DISCHARGED FROM THERAPY AND THAT HE SHOULD CONTINUE TO AMBULATE AD RICHA IN ROOM AND ON UNIT. WILL DISCHARGE FROM P.T. SERVICES.
[2025-06-04 15:20] VITALS: BP 147/70
[2025-06-04] MEDS: LOVENOX 40 MG SC (17:56)
[2025-06-04] MEDS: TYLENOL PO ×3 (17:59→23:13)
[2025-06-04 18:39] LABS: Glucose - Point of Care 110 mg/dl (70-99)
[2025-06-04 23:00] VITALS: BP 128/65
[2025-06-04 23:56] LABS: Glucose - Point of Care 100 mg/dl (70-99)
[2025-06-05] MEDS: D5LR 1000 IV ×2 (01:10→08:21)
[2025-06-05] MEDS: TYLENOL PO ×6 (04:08→23:48)
[2025-06-05 06:00] VITALS: BMI 18.9
[2025-06-05 06:00] LABS: Glucose - Point of Care 101 mg/dl (70-99)
[2025-06-05 07:10] VITALS: BP 129/66
[2025-06-05 07:48] LABS: Blood Urea Nitrogen < 2 mg/dl (9-20); Calcium 7.9 mg/dl (8.4-10.2); Carbon Dioxide 29 mmol/L (22-30); Chloride 107 mmol/L (98-107); Estimated Creatinine Clearance 95 ml/min; Glucose 87 mg/dl (70-99); Potassium 3.8 mmol/L (3.5-5.1); Sodium 136 mmol/L (135-145); eGFR > 60.00
[2025-06-05] MEDS: NSS (PRESERVATIVE FREE) 10 ML IV (08:18)
[2025-06-05] MEDS: DILAUDID 0.5 MG IV ×2 (08:18→13:43)
[2025-06-05] MEDS: PROTONIX IV 40 MG IV (08:19)
[2025-06-05 09:30] LABS: Hematocrit 29.9 % (39.0-52.0); Hemoglobin 8.5 g/dL (13.0-18.0); Mean Corp Hgb Conc. 28.4 g/dL (33.0-37.0); Mean Corpuscular Volume 74.2 fL (80.0-94.0); Nucleated Red Blood Cells % 0 % (-); Platelet Count 307 10^3/uL (130-400)
--- NOTE | 2025-06-05 09:50 | W.PN.HOSP.TC ---
Today's Communication/Plan
-
Advance diet per surgery
Assessment / Plan
Assessment / Plan
#Colon cancer
Colonoscopy shows A fungating partially obstructing large mass was found in the cecum and in the ascending colon. The mass was circumferential.
CT of the abdomen pelvis findings of a right colon mass noted.
CEA 0.71
Colonic Biopsy positive for adenocarcinoma
Status post right hemicolectomy on 05/29/[address] Orlando. Postop note mention no obvious peritoneal disease or hepatic metastasis noted
OR Path report pending
NG tube is out now. Advance diet per surgery
OP onc f/u once path finalizes
Continue with IV fluids. Oral intake is adequate
CRS following
#Severe symptomatic anemia causing exertional shortness of breath likely secondary to colonic mass
No clinical evidence of acute coronary syndrome nor acute heart failure.
Feeling improved after transfusion.
#Severe microcytic anemia with iron deficiency
Ferritin very low. Heme positive stools. Suspect chronic GI bleed. Hemodynamically stable.
Status post 3 units of PRBC with improvement in hemoglobin.
Transfuse to keep hemoglobin more than 7.
s/p IV iron 5d course. S/p EGD without any source of bleeding.
#Primary hypertension
patient symptomatic when he was resumed on ARB last week.
Hold for now
Blood pressure under good
Full code
DVT ppx-Lovenox
Anticipated Discharge: 24 - 48 hours
Subjective/Interval History
-
Date of Service: June 05, 2025
NG tube is out. Denies any nausea or vomiting. Tolerating sips of clears without nausea. Passing flatus . Had some liquidy rectal discharge.
Denies chest pain or shortness of breath. No lightheadedness.
Objective Data
-
Labs:
Laboratory Results
06/05/25
06:48
WBC 4.2 L
Hgb 8.5 L
Hct 29.9 L
Plt Count 307
Sodium 136
Potassium 3.8
Chloride 107
Carbon Dioxide 29
BUN < 2 L
Creatinine 0.7
Glucose 87
Calcium 7.9 L
Vital Signs:
Vital Signs
Temp Pulse Resp BP Pulse Ox
98.4 F 77 16 129/66 96
06/05/25 07:10 06/05/25 07:10 06/05/25 07:10 06/05/25 07:10 06/05/25 08:34
I&O
06/04/25 06/05/25 06/06/25
06:59 06:59 06:59
Intake Total 2430 / 2430 1290 / 1290
Output Total 100 / 100 150 / 150
Balance 2330 / 2330 1140 / 1140
Physical Exam
-
Respiratory: Non Labored Respirations; Negative Accessory Resp Muscle Use
Cardiac: Regular Rhythm and S1/S2; Negative Tachycardic
GI: Soft, Nondistended, Normal Bowel Sounds and Other (Laparotomy incision line clean)
Neuro: AO x 3
Data Reviewed
-
Labs: Labs Reviewed by me
--- NOTE | 2025-06-05 14:33 | W.PN.CRS1 ---
Today's Communication / Plan
-
as below
Assessment/Plan
-
64-year-old male with PMH of HTN, found to have obstructing cecal mass
POD 7 open RHC
AFVSS
WBC 4.2, Hb 8.5 from 8.8, CR 0.7
� Will advance to low residue diet, but caution patient regarding any N/V, encouraged to go slow and stick with bland foods
� Pain control with Tylenol and Dilaudid as needed, will start oxycodone
� Continue DVT PPx with Lovenox
� OOB/IS
� Appreciate hospitalist
Subjective Data
Procedure
05/29/2025- right colectomy
Subjective Data
Date of Service: June 05, 2025
Feeling much better. Denies N/V, passing flatus and had a liquid BM today. Voiding. Pain controlled. Insistent on solid foods.
Objective Data
-
Vital Signs
Temp Pulse Resp BP Pulse Ox
98.4 F 77 16 129/66 96
06/05/25 07:10 06/05/25 07:10 06/05/25 07:10 06/05/25 07:10 06/05/25 08:34
Intake & Output
06/04/25 06/05/25 06/06/25
06:59 06:59 06:59
Intake Total 2430 / 2430 1290 / 1290 240 / 240
Output Total 100 / 100 150 / 150
Balance 2330 / 2330 1140 / 1140 240 / 240
Intake:
Oral fluids 240 / 240
IV fluids (Total) 2400 / 2400 1200 / 1200
Amount instilled into GI Tube ( 30 / 30 90 / 90
Total)
[place] Sump 30 / 30 90 / 90
Output:
Gastrointestinal tube output ( 100 / 100 150 / 150
Total)
[place] Sump 100 / 100 150 / 150
Other:
Number of approximated MODERATE 2 3 1
amounts of urine
Number of approximated LARGE 3
amounts of urine
Number of unmeasured liquid
stools
Rectum 1
Lab Results
06/05/25 06:48
06/05/25 06:48
Physical Exam
-
General: No Acute Distress and AOx3
HEENT: Grossly Normal
Abdomen: Soft, Non Distended, Tender (Appropriately tender near midline incision), No Guarding and No Rebound
Skin: Warm and Dry
Wound: No Signs of Infection, No Skin Erythema and Other (Midline incision closed with jackie, no surrounding erythema or drainage, open to air)
[2025-06-05 15:17] VITALS: BP 134/72
[2025-06-05] MEDS: ROXICODONE 5 MG PO (17:42)
[2025-06-05] MEDS: LOVENOX 40 MG SC (17:43)
[2025-06-05 21:03] LABS: Glucose - Point of Care 98 mg/dl (70-99)
[2025-06-05 23:00] VITALS: BP 142/66
[2025-06-06] MEDS: TYLENOL PO ×2 (03:33→09:11)
[2025-06-06 05:56] VITALS: BMI 18.6
[2025-06-06] MEDS: ROXICODONE 5 MG PO (06:35)
[2025-06-06 07:06] LABS: Blood Urea Nitrogen 5 mg/dl (9-20); Calcium 8.4 mg/dl (8.4-10.2); Carbon Dioxide 28 mmol/L (22-30); Chloride 107 mmol/L (98-107); Estimated Creatinine Clearance 94 ml/min; Glucose 96 mg/dl (70-99); Potassium 4.0 mmol/L (3.5-5.1); Sodium 137 mmol/L (135-145); eGFR > 60.00
[2025-06-06 07:23] LABS: Glucose - Point of Care 92 mg/dl (70-99)
[2025-06-06 07:37] VITALS: BP 137/66
[2025-06-06] MEDS: PROTONIX IV 40 MG IV (09:11)
[2025-06-06] MEDS: NSS (PRESERVATIVE FREE) 10 ML IV (09:12)
--- NOTE | 2025-06-06 09:53 | W.DCSUMMARY ---
Discharge Summary
Discharge Data
Date of Admission: 05/25/25
Date of Discharge: 06/06/25
-
Pending Results: Yes
Additional Pending Results:
Colon resection biopsies
Hospital Course
Primary diagnosis:
Colon cancer status post right hemicolectomy 05/29/2025
Severe symptomatic iron deficiency anemia secondary to GI blood loss
Secondary diagnosis:
Hypertension
Hospital course:
Patient presented with progressive shortness of breath and was discovered to have severe significant anemia with hemoglobin as low as 3.8. He was heme positive. He had a colonoscopy which was positive for a fungating partially obstructing large
mass was found in the cecum and in the ascending colon. The mass was circumferential. Biopsies were positive for adenocarcinoma. Went on to have a right hemicolectomy. No obvious peritoneal disease or hepatic metastasis noted by surgeon in the
OR. CT also showed no hepatic metastasis or any significant lymphadenopathy. Resected bowel specimen biopsy report were pending at the time of discharge. He was tolerating a low residue diet prior to discharge.
He had IV iron infusions during his stay here.
He apparently was known to have primary hypertension which was discovered recently, was put on ARB but his blood pressure was very low at the time of presentation and during the course of stay here he did not need any antihypertensives. Advised him
to hold on ARB until follow-up visit by PCP.
Surgery wants him to be on Eliquis low-dose for DVT prophylaxis.CM looking into cost of it at the time of this dictation.
Today patient was feeling fine. Afebrile. Blood pressure 133/66. Pulse was 71 regular. Abdomen is soft. Incision line looked clean. Pain was under control with just oxycodone.
He was deemed stable for discharge home today.
Consultants on board:
CRS -Mars Carnes
GI - Robi Teixeira
Discharge Plan
-
Patient Disposition: Home (Routine Discharge)
Discharge Diagnosis/Procedures: Colon /cecal adenocarcinoma s/p right hemicolectomy 05/29
Diet: Low Residue
Activity: No strenuous activity
Additional Activity: No lifting over 10lbs (gallon of milk)
Driving Restrictions: Not until seen by your Dr
Bathing Restrictions: None
Blood Work: CBC blood work in 1 week-arrange through PCP
Wound Care: Allow glue to naturally fall off. Do not pick at incisions.
Instructions: Low-fiber diet
Referrals:
Mars Orlando MD [Active, ColoRectal] - in two weeks
PRIVATE,PHYSICIAN [Family Provider, Internal Medicine] - in less than 1 week
Additional Discharge Medication Instructions: Tylenol or Ibuprofen as needed for pain. Maximum dose of Tylenol is 4,000mg in 24 hours. Maximum dose of Ibuprofen is 3,200mg in 24 hours.
Prescriptions:
New
Eliquis 2.5 mg tablet
2.5 mg PO BID 30 Days Qty: 60 0RF
oxycodone 5 mg Tablet
5 mg PO Q8HPRN PRN (Reason: moderate pain) Qty: 15 0RF
Rx Instructions:
Use if tylenol and ibuprofen doesnt contain pain
acetaminophen 325 mg Tablet
650 mg PO Q4HWA PRN (Reason: mild pain) Qty: 1 0RF
ibuprofen 400 mg tablet
400 mg PO Q8H PRN (Reason: moderate Pain) Qty: 15 0RF
polyethylene glycol 3350 [Miralax] 17 gram powder in packet
17 g PO DAILY PRN (Reason: Constipation) Qty: 14 0RF
Held
valsartan 320 mg Tablet
320 mg PO DAILY
Hold Instructions: Resume on 06/13/25. Resume after your PCP visit and deemed needed
Patient Comments:
patient stopped due medication making him pass out and dizzyness
Discharge Orders:
Discharge Patient (As Directed); Ordered 06/06/25
Ordered By: Michael Corona
Discharge Date and Time
Print Language: EQUATORIAL GUINEAN
--- NOTE | 2025-06-06 09:58 | CM ---
Reviewed the chart notes. Patient for discharge to home. No needs. Cost of Eliquis previously investigated. Per patient's pharmacy, no cost. CM continues to be available to patient/family and is monitoring medical plan for needs at discharge.
Plan: Discharge to home. No additional needs identified at this time.
[2025-06-06 11:17] VITALS: BP 147/75
--- NOTE | 2025-06-06 12:28 | W.PN.CRS1 ---
Today's Communication / Plan
-
Discharge
Assessment/Plan
-
64-year-old male with PMH of HTN, found to have obstructing cecal mass
POD 8 open RHC
AFVSS
� Tolerating a low residue diet
� Pain control with Tylenol and Dilaudid as needed, will start oxycodone
� Continue DVT PPx with Lovenox
� OOB/IS
� Appreciate hospitalist
- Okay for d/c from our perspective. Will need follow up in the office with Dr. Orlando in 2 weeks. Pathology still pending (discussed with patient). Eliquis 2.5mg BID for a month for DVT prophylaxis. Activity levels, diet, and follow-up discussed
with patient. All questions asked.
Subjective Data
Procedure
05/29/2025- right colectomy
Subjective Data
Date of Service: June 06, 2025
Patient is doing well. He has no complaints.
Objective Data
-
Vital Signs
Temp Pulse Resp BP Pulse Ox
97.8 F 75 17 147/75 97
06/06/25 11:17 06/06/25 11:17 06/06/25 11:17 06/06/25 11:17 06/06/25 11:17
Intake & Output
06/05/25 06/06/25 06/07/25
06:59 06:59 06:59
Intake Total 1290 / 1290 2160 / 2160 480 / 480
Output Total 150 / 150 300 / 300
Balance 1140 / 1140 1860 / 1860 480 / 480
Intake:
Oral fluids 960 / 960 480 / 480
IV fluids (Total) 1200 / 1200 1200 / 1200
Amount instilled into GI Tube ( 90 / 90
Total)
[place] Sump 90 / 90
Output:
Gastrointestinal tube output ( 150 / 150
Total)
[place] Sump 150 / 150
Urine, Voided 300 / 300
Other:
Number of approximated MODERATE 3 1 4
amounts of urine
Number of unmeasured liquid
stools
Rectum 1
Lab Results
06/05/25 06:48
06/06/25 06:20
Physical Exam
-
General: No Acute Distress and AOx3
Abdomen: Soft, Non Distended and Non Tender
Skin: Warm and Dry
Incision: Clear, Dry, Intact
== END 2025-06-06 11:50 | disposition home or self-care (01) | DRG 330 ==
LOC: 2 SOUTH 12:20
PROVIDERS: Hospitalist; Nurse Practitioner Adult Health; Physician Assistant; Registered Nurse; Specialist; Surgery; ADMITTING PHYSICIAN Internal Medicine; CONSULT PHYSICIAN Internal Medicine Gastroenterology; EMERGENCY PHYSICIAN Emergency Medicine; OTHER PHYSICIAN Surgery
PROC: 30233N1 Transfusion of Nonautologous Red Blood Cells into Peripheral Vein, Percutaneous Approach (ICD-10-PCS; 2025-05-25)
PROC: 0DB68ZX Excision of Stomach, Via Natural or Artificial Opening Endoscopic, Diagnostic (ICD-10-PCS; 2025-05-26)
PROC: 0DB48ZX Excision of Esophagogastric Junction, Via Natural or Artificial Opening Endoscopic, Diagnostic (ICD-10-PCS; 2025-05-26)
PROC: 0DB98ZX Excision of Duodenum, Via Natural or Artificial Opening Endoscopic, Diagnostic (ICD-10-PCS; 2025-05-26)
PROC: 0DBH8ZX Excision of Cecum, Via Natural or Artificial Opening Endoscopic, Diagnostic (ICD-10-PCS; 2025-05-27)
PROC: 0DBP8ZZ Excision of Rectum, Via Natural or Artificial Opening Endoscopic (ICD-10-PCS; 2025-05-27)
PROC: 0DBL8ZZ Excision of Transverse Colon, Via Natural or Artificial Opening Endoscopic (ICD-10-PCS; 2025-05-27)
PROC: 0DBK8ZX Excision of Ascending Colon, Via Natural or Artificial Opening Endoscopic, Diagnostic (ICD-10-PCS; 2025-05-27)
PROC: 0DTF0ZZ Resection of Right Large Intestine, Open Approach (ICD-10-PCS; 2025-05-29)
DX: C18.0 Malignant neoplasm of cecum (principal); E87.1 Hypo-osmolality and hyponatremia; K92.1 Melena; K91.89 Other postprocedural complications and disorders of digestive system; K56.7 Ileus, unspecified; Z68.1 Body mass index [BMI] 19.9 or less, adult; K56.690 Other partial intestinal obstruction; D50.0 Iron deficiency anemia secondary to blood loss (chronic); I10 Essential (primary) hypertension; R19.7 Diarrhea, unspecified; R00.0 Tachycardia, unspecified; E88.09 Other disorders of plasma-protein metabolism, not elsewhere classified; R63.6 Underweight; K44.9 Diaphragmatic hernia without obstruction or gangrene; K22.89 Other specified disease of esophagus; K31.7 Polyp of stomach and duodenum; K31.89 Other diseases of stomach and duodenum; K62.1 Rectal polyp; K63.5 Polyp of colon; Y83.2 Surgical operation with anastomosis, bypass or graft as the cause of abnormal reaction of the patient, or of later complication, without mention of misadventure at the time of the procedure; Z80.0 Family history of malignant neoplasm of digestive organs; Z87.891 Personal history of nicotine dependence
CPT/HCPCS: 36430; 71045; 71046; 74022; 74177; 80048; 80053; 82378; 82607; 82728; 82746; 82784; 82962; 83036; 83516; 83540; 83550; 83735; 83880; 84484; 85014; 85018; 85025; 85027; 85610; 85730; 86231; 86803; 86850; 86900; 86901; 86920; 88305; 88309; 88342; 93005; 96374; 97116; 97162; 99285; C1776; J1335; J2916; P9016; Q9967

== ENCOUNTER 2025-07-12 06:11 | Day surgery (SDC) | payer OTHER, SELFPAY ==
[2025-07-12 14:10] VITALS: BMI 18.3
[2025-07-12 14:11] VITALS: BP 161/74
[2025-07-12] MEDS: NORMOSOL-R/PLASMALYTE-A 1000 IV (14:28)
[2025-07-12 20:05] VITALS: BP 127/71; BP 161/74
[2025-07-12 20:10] VITALS: BP 135/73
[2025-07-12 20:25] VITALS: BP 144/71
[2025-07-12 20:41] VITALS: BP 149/77
== END 2025-07-12 20:53 | disposition home or self-care (01) ==
LOC: SDS 06:11
PROVIDERS: ATTENDING PHYSICIAN Surgery
DX: C18.9 Malignant neoplasm of colon, unspecified (principal); C18.0 Malignant neoplasm of cecum
CPT/HCPCS: 36561; 71045; 76000; C1788

== ENCOUNTER → 2025-07-17 13:58 | Outpatient (REF) | payer OTHER, SELFPAY ==
[2025-07-17 14:03] LABS: Hematocrit 39.7 % (39.0-52.0); Hemoglobin 11.7 g/dL (13.0-18.0); Mean Corp Hgb Conc. 29.5 g/dL (33.0-37.0); Mean Corpuscular Volume 82.4 fL (80.0-94.0); Platelet Count 243 10^3/uL (130-400); Red Cell Dist. Width 16.2 % (11.5-14.5)
[2025-07-17 14:38] LABS: ALT (SGPT) 19 U/L (0-50); AST (SGOT) 21 U/L (17-59); Albumin 4.0 g/dl (3.5-5.0); Alkaline Phosphatase 67 U/L (38-126); Blood Urea Nitrogen 15 mg/dl (9-20); Calcium 9.2 mg/dl (8.4-10.2); Carbon Dioxide 27 mmol/L (22-30); Chloride 107 mmol/L (98-107); Glucose 116 mg/dl (70-99); Potassium 4.1 mmol/L (3.5-5.1); Sodium 139 mmol/L (135-145); Total Protein 7.0 g/dl (6.3-8.2); eGFR > 60.00
== END ==
LOC: OIDL 13:58
PROVIDERS: ATTENDING PHYSICIAN Internal Medicine Hematology & Oncology
DX: R64 Cachexia (principal)
CPT/HCPCS: 80053; 85025

== ENCOUNTER → 2025-08-03 15:59 | Outpatient (REF) | payer OTHER, SELFPAY | LOC: RAD 15:59 | PROVIDERS: ATTENDING PHYSICIAN Internal Medicine Hematology & Oncology | DX: D50.9 Iron deficiency anemia, unspecified (principal); R64 Cachexia; C18.0 Malignant neoplasm of cecum | CPT/HCPCS: 71260; 74177; Q9967 ==

== ENCOUNTER 2025-09-06 08:12 | Inpatient (IN) | payer OTHER, SELFPAY ==
[2025-09-05 14:07] VITALS: BP 167/99
[2025-09-05 14:33] LABS: Hematocrit 47.8 % (39.0-52.0); Hemoglobin 15.6 g/dL (13.0-18.0); Mean Corp Hgb Conc. 32.6 g/dL (33.0-37.0); Mean Corpuscular Volume 80.5 fL (80.0-94.0); Nucleated Red Blood Cells % 0 % (-); Red Cell Dist. Width 19.4 % (11.5-14.5)
[2025-09-05 14:43] LABS: ALT (SGPT) 53 U/L (0-50); AST (SGOT) 42 U/L (17-59); Albumin 4.5 g/dl (3.5-5.0); Alkaline Phosphatase 104 U/L (38-126); Blood Urea Nitrogen 17 mg/dl (9-20); Calcium 9.2 mg/dl (8.4-10.2); Carbon Dioxide 29 mmol/L (22-30); Chloride 103 mmol/L (98-107); Glucose 98 mg/dl (70-99); Lipase 1215 U/L (23-300); Potassium 4.7 mmol/L (3.5-5.1); Sodium 136 mmol/L (135-145); Total Protein 7.5 g/dl (6.3-8.2); eGFR > 60.00
[2025-09-05 15:10] LABS: Platelet Count 130 10^3/uL (130-400)
[2025-09-05 18:07] VITALS: BP 189/95
--- NOTE | 2025-09-05 18:16 | ED.GENMED ---
History of Present Illness
General
Chief Complaint: Abdominal Pain
Source: patient
Time Seen by Provider: 09/05/25 18:02
History of Present Illness
History of Present Illness:
64-year-old male presents emergency department complaints of abdominal pain in his head for approximately a week. He had some leftover narcotics from a recent port placement and states that he started to take that which helped him however he then
got constipated so he discontinued the pain medicine. He is no longer constipated and had a bowel movement this morning that was without black stool or blood. However, the pain continues, and has been getting worse each day. He is tolerating food
and drink without difficulty and describes having a banana peanut butter sandwich this morning. He denies anorexia, nausea, vomiting, fever, chills, chest pain, dyspnea, back pain, diaphoresis, or other complaints. The pain is located in the mid
to epigastric area, no radiation, no exacerbating relieving factors.
Past History
Past History
ED Past Medical History: Other (: [place])
ED Past Surgical History: Bowel resection and Orthopedic
Social History
Tobacco: Former smoker
Alcohol: Other (Patient states that he was a heavy consumer of alcohol up until 2020, now describes himself as a infrequent consumer of alcohol, no greater than once a week)
Drug: None
Personal:
Phy Exam
Physical Exam
Physical Exam:
GENERAL: Alert , in no apparent distress, thin
EYE: pupils equal and reactive
NECK: Supple, no significant adenopathy.
ENT: o/p clr, mmm.
CARDIAC: Regular rate and rhythm .
LUNGS: Clear breath sounds bilaterally, no acute respiratory distress, no wheezes/rales/rhonchi
ABDOMEN: Soft, surgical incision clean dry and intact, mild to moderate tenderness noted at the epigastric area, no rebound or guarding
NEUROLOGICAL: Alert and oriented, no focal neuro deficits
SKIN: Warm and dry, skin intact.
MUSCULOSKELETAL: No edema, well perfused.
PSYCH: Normal and appropriate interaction.
Course
Orders/Labs/Results
Orders:
Orders
09/05/25 14:13
Complete Blood Count/With Diff Urgent
Comprehensive Metabolic Panel Urgent
Lipase Urgent
09/05/25 18:05
US Abdomen Complete/Upper Urgent
Comment:
Reason For Exam: pancreatitis
09/05/25 18:15
0.9% Sodium Chloride 1000 ml [Nss] 1,000 ml IV BOLUS
09/05/25 18:52
Admit/Transfer Patient As Directed
Co-Sign Provider:
Level of Care: Observation services
Assign to:: Medical/Surgical
Physician / Group: raul
Diagnosis: abdominal pain
Code Status As Directed
Resuscitation Status: Full Code
PRN Pain Medication Management As Directed
May give lesser potent ordered pain med per pt: Yes
preference::
Protocol:: Medication orders for pain may be administered in a
manner that supports deferring to patient preference
when the pt is:
- Requesting an ordered lesser potent pain medication.
Least to most potent pain medications are defined
as: acetaminophen < NSAID < tramadol < opioids
(morphine, oxycodone, hydromorphone).
- Requesting a lesser dose of the same medication IF
ORDERED.
- Requesting a less intrusive route of administration
if both routes are prescribed by the provider (PO <
IV).
09/05/25 18:57
Abdomen/Pelvis w Contrast CT [CT Abd/pelvis W Iv Cont] Urgent
Comment:
Reason For Exam: ab pain, pancreatitis/colectomy complication
09/05/25 20:49
HYDROmorphone [Dilaudid] 0.5 mg IV Q4HPRN PRN
Heparin 5,000 units SC Q12
09/05/25 20:49
Activity As Directed
Activity Level: As Tolerated
Vital Signs As Directed
Frequency: Per unit guidelines
DX Deep Vein Thrombosis Video Routine
09/05/25 21:00
Flush (0.9% Sodium Chloride) [Flush (Nss)] See Dose Instructions IV PER PROTOCOL
09/05/25 21:33
DIETARY IP CONSULT Routine
Reason for Consult: weight loss
09/05/25 22:00
Lactated Ringers [Lr] 1,000 ml IV 100 mls/hr
09/06/25 Breakfast
NPO
Allow oral meds: Yes
Allow clear liquids: Sips of Clears
NPO with Ice Chips: No
09/06/25 06:41
Complete Blood Count/With Diff IN AM
Comprehensive Metabolic Panel IN AM
Lipase Routine
Comment: ADD ON
Abnormal Lab Results
09/05/25 09/06/25
14:13 06:41
WBC 2.7 L 10^3/uL 2.1 L* 10^3/uL
(4.8-10.8) (4.8-10.8)
MCH 26.3 L pg 26.4 L pg
(27.0-31.0) (27.0-31.0)
MCHC 32.6 L g/dL 32.5 L g/dL
(33.0-37.0) (33.0-37.0)
RDW 19.4 H % 19.0 H %
(11.5-14.5) (11.5-14.5)
Plt Count 108 L 10^3/uL
(130-400)
Absolute Neuts (auto) 1.2 L 10^3/uL 0.7 L* 10^3/uL
(1.4-6.5) (1.4-6.5)
Absolute Lymphs (auto) 1.1 L 10^3/uL 0.9 L 10^3/uL
(1.2-3.4) (1.2-3.4)
Neutrophils % 35.8 L %
(42.2-75.2)
Monocytes % 10.6 H %
(1.7-9.3)
Eosinophils % 7.2 H %
(0-6)
ALT 53 H U/L
(0-50)
Total Protein 6.0 L g/dl
(6.3-8.2)
Lipase 1215 H* U/L 1088 H* U/L
(23-300) (23-300)
09/06/25 06:41
09/06/25 06:41
Vital Signs
Initial and Last Documented VS:
Initial Vital Signs
Temp Pulse Resp BP Pulse Ox
98.3 F 82 20 167/99 100
09/05/25 14:07 09/05/25 14:07 09/05/25 14:07 09/05/25 14:07 09/05/25 14:07
Last Documented Vital Signs
Temp Pulse Resp BP Pulse Ox
98.1 F 66 16 128/77 97
09/07/25 07:30 09/07/25 07:30 09/07/25 07:30 09/07/25 07:30 09/07/25 10:15
*Pulse Oximetry
SaO2: 100
Oxygen Mode of Delivery: Room air
Patient hypoxic: no
*Critical Care Note
Total Time (30-74mins, 75-104mins- exclusive of procedures): Not Applicable
Update Note
Update Note:
Patient presents to the Emergency Department with ____abdominal pain
Number and Complexity of Problems Addressed at the Encounter
� Chronic conditions affecting care:
� Acute Exacerbation and/or Progression of Chronic Illness:
� Differential Diagnosis includes: But not limited to cholecystitis, cholelithiasis, pancreatitis, bowel obstruction, etc. etc.
Amount and/or Complexity of Data to be Reviewed and Analyzed
� I performed an independent evaluation of and my interpretation is:
EKG:
CT:
Xrays:
Laboratory Studies: Generally unremarkable with exception of a markedly elevated lipase at 1215
Other:
� Review of other/old records reveals: Reports reviewed from July 2025 hospitalization for colon cancer with resection
� Clinical information was obtained by an independent historian:
� Prescriptions/Medications Considered but not given:
� Further testing considered but not performed:
Risk of Complications and/or Morbidity or Mortality of Patient Management
� Social determinants of health affecting care:
� Discussion with other providers (PCP, Hospitalists, Consultants, etc):
� Escalation of care including admission/observation vs risk of discharge considered: Patient does not identify any potential consumption of meds etc. that could precipitate pancreatitis. Recent CAT scans did not demonstrate
cholelithiasis, and in the context of normal LFTs think it is extremely unlikely that this is related to a gall stone pancreatitis. Nonetheless ultrasound has been ordered and is being. Patient does describe a history of heavy alcohol use in the
past but denies heavy alcohol intake at this time. Patient will be n.p.o., IV fluids, admission to the hospitalist who is made aware.
ED Attending Note
-
Portions of this chart may have been created with voice recognition software.� Occasional wrong word or��sound alike� substitutions may have occurred due to the inherent limitations of voice recognition software.
Discharge Plan
Departure
Patient Disposition: Admit
Date of Disposition: 09/05/25
Time of Disposition: 18:20
Presentation/result/management discussed w/ accepting MD/DO: Hospitalist
Condition: Fair
Discharge Problem:
Pancreatitis
Interventions
Interventions:
*Risk Screen - Suicide Last Done: 09/05/25 14:04
*General Assessment Last Done: 09/05/25 14:07
*Neglect/Abuse Screening Last Done: 09/05/25 14:07
*ED COVID-19 Vaccine History Last Done: 09/05/25 19:11
*ED Influenza Vaccine History Last Done: 09/05/25 19:11
[facility] Fall Risk Assessment Tool Last Done: 09/05/25 18:11
*Nursing Disposition Last Done: 09/05/25 20:51
DS-Ajcuse-Gguowzknvb Assessment Last Done: 09/05/25 18:11
Discharge Date and Time
Discharge Date/Time: 09/05/25 20:51
[2025-09-05 18:42] VITALS: BP 153/90
--- NOTE | 2025-09-05 18:55 | HPS.HSE ---
Addendum entered and electronically signed by Daina Oleary MD 09/05/25 21:31:
CT scan shows questionable minimally edematous change of the pancreas which could represent minimal acute pancreatitis.
Abdominal ultrasound shows no evidence of cholelithiasis, gallbladder wall thickening or biliary tract dilatation.
N.p.o., lactated Ringer's 150 cc/hr.
Original Note:
Family Physician
-
Family Physician:
Chief Complaint
-
abdominal pain
History of Present Illness
64-year-old male past medical history of colon cancer status post right hemicolectomy on 05/29 on chemotherapy, severe symptomatic iron deficiency anemia secondary to GI blood loss, hypertension, heavy alcohol use in the past presenting with
periumbilical abdominal pain for a week. Pain is constant severe and worse with certain position or palpation. Pain is not related to eating.
He had some leftover narcotics from recent port placement states that he started to take it but then got so constipated he stopped the pain medication. He is no longer constipated and had a bowel movement this morning without bleeding. However he
is continue to have pain that is getting worse every day. He is tolerating food and drink without difficulty and had a sandwich this morning. Denies decreased p.o. intake, nausea or vomiting, fevers or chills, chest pain, shortness of with, back
pain, sweating or other complaints.
He denies any history of pancreatitis.
Significant family history for heart disease in multiple family members. Also his mother and sister have gallstones.
Medical History
Past Medical History
Past Medical History: Reports Other ( colon cancer status post right hemicolectomy on 05/29 on chemotherapy, severe symptomatic iron deficiency anemia secondary to GI blood loss, hypertension, heavy alcohol use in the past)
Past Surgical History: Reports None
Social History
Tobacco: Non-smoker
Alcohol: Former
Drug: None
Family History
Family History: Not pertinent
Allergies / Home Medications
Allergies reflects when Allergies were last updated in [facility].
Home Medications with original date entered in [facility]
Allergy/Medication List:
Allergies
Allergy/AdvReac Type Severity Reaction Status Date / Time
No Known Allergies Allergy Verified 09/05/25 14:08
Home Medications
acetaminophen 500 mg capsule 1,000 mg PO Q6H PRN pain 07/07/25
iron 28 mg PO DAILY 07/07/25
Review of Systems
-
History Source: Patient
A 12 point ROS was completed and negative except as noted: Yes
Constitutional: Reports No Symptoms
EENT: Reports No Symptoms
Respiratory: Reports No Symptoms
Cardiac: Reports No Symptoms
Abdomen/GI: Reports No Symptoms
: Reports No Symptoms
Musculoskeletal: Reports No Symptoms
Skin: Reports No Symptoms
Neurological: Reports No Symptoms
Endocrine: Reports No Symptoms
Hematologic/Lymphatic: Reports No Symptoms
Psych: Reports No Symptoms
Physical Exam
Vital Signs
Vital Signs
Temp Pulse Resp BP Pulse Ox
98.3 F 82 20 153/90 99
09/05/25 14:07 09/05/25 14:07 09/05/25 14:07 09/05/25 18:42 09/05/25 18:43
Physical Exam
General: Well Developed, Well Nourished and No Apparent Distress
HEENT: NormoCephalic, Moist mucous membranes and Atraumatic
Respiratory: Clear
Cardiac: S1/S2 and Regular Rhythm; No Murmur or Rub
GI: Soft, Non Distended, Normal Bowel Sounds and Tender (periumbilical ); No Organomegaly
Rectal: Deferred by Provider
Musculoskeletal: No Clubbing, No Cyanosis and No Edema
Skin: No Rash
Neuro: Nonfocal/grossly intact
Laboratory Results
-
09/05/25 14:13
09/05/25 14:13
Laboratory Results
Total Bilirubin 0.5 mg/dl (0.2-1.3) 09/05/25 14:13
AST 42 U/L (17-59) 09/05/25 14:13
ALT 53 U/L (0-50) H 09/05/25 14:13
Alkaline Phosphatase 104 U/L (38-126) 09/05/25 14:13
Lipase 1215 U/L (23-300) H* 09/05/25 14:13
Data Reviewed
-
Lab Data: Labs Reviewed by me
Old Records: Reviewed
Impression/Plan
-
IMPRESSION:
PLAN:
# Periumbilical abdominal pain unclear if related to acute pancreatitis versus postsurgical complication of hemicolectomy such as abscess
- Lipase 1200
- Abdominal ultrasound
- Check CT abdomen pelvis
- Dilaudid
-NPO for now
Recent opiate induced constipation
- Now resolved
Colon cancer status post right hemicolectomy on 05/29 on chemo
Severe iron deficiency anemia secondary to GI blood loss
Essential hypertension
Former heavy alcohol use
Chronic leukopenia
Full code
DVT prophylaxis-heparin
NPO
[2025-09-05 19:00] VITALS: BP 146/88
[2025-09-05] MEDS: NSS 1000 IV (20:08)
[2025-09-05 20:57] VITALS: BP 166/96
[2025-09-05 20:58] VITALS: BMI 18.1
[2025-09-05] MEDS: HEPARIN 5000 UNITS SC (21:54)
[2025-09-05] MEDS: LR 1000 IV (21:54)
--- NOTE | 2025-09-05 22:15 | PTCARENOTE ---
Rec'd patient from ER. Stable vitals. AAOx3. No c/o pain at this time. POC reviewed with patient.
[2025-09-06 00:15] VITALS: BP 103/69
[2025-09-06] MEDS: LR 1000 IV ×3 (03:45→20:03)
[2025-09-06 07:30] VITALS: BP 140/85
[2025-09-06 07:51] LABS: Hematocrit 43.1 % (39.0-52.0); Hemoglobin 14.0 g/dL (13.0-18.0); Mean Corp Hgb Conc. 32.5 g/dL (33.0-37.0); Mean Corpuscular Volume 81.2 fL (80.0-94.0); Platelet Count 108 10^3/uL (130-400); Red Cell Dist. Width 19.0 % (11.5-14.5)
[2025-09-06 08:06] LABS: ALT (SGPT) 41 U/L (0-50); AST (SGOT) 32 U/L (17-59); Albumin 3.6 g/dl (3.5-5.0); Alkaline Phosphatase 92 U/L (38-126); Blood Urea Nitrogen 11 mg/dl (9-20); Calcium 8.8 mg/dl (8.4-10.2); Carbon Dioxide 28 mmol/L (22-30); Chloride 106 mmol/L (98-107); Estimated Creatinine Clearance 79 ml/min; Glucose 85 mg/dl (70-99); Potassium 4.1 mmol/L (3.5-5.1); Sodium 135 mmol/L (135-145); Total Protein 6.0 g/dl (6.3-8.2); eGFR > 60.00
[2025-09-06 09:00] LABS: Nucleated Red Blood Cells % 0 % (-)
[2025-09-06] MEDS: HEPARIN 5000 UNITS SC ×2 (09:05→20:02)
[2025-09-06 09:28] LABS: Lipase 1088 U/L (23-300)
--- NOTE | 2025-09-06 11:06 | CM ---
Spoke w/ spouse, initial assessment completed. Patient is a 64-year-old male past medical history of colon cancer status post right hemicolectomy on 05/29 on chemotherapy, severe symptomatic iron deficiency anemia secondary to GI blood loss,
hypertension, heavy alcohol use in the past presenting with periumbilical abdominal pain.
Patient resides w/ spouse in a 3rd floor condo, 8 steps into the building, 24 steps to condo. No elevator. Patient is independent w/ ambulation, has a cane but doesn't want to use it per spouse. Independent w/ ADLs and personal care. Drives (+). No
SNF/HC hx. Per spouse, patient hasn't been going anywhere because he's been having issues getting up and down the steps and doesn't want to use his cane.
Address, point of contact and insurance verified
PCP: Carey Madsen
Pharmacy: [facility]
Plan: Home, will watch for d/c needs
--- NOTE | 2025-09-06 11:38 | W.PN.HOSP.TC ---
Today's Communication/Plan
-
clears for now
IVF
pain control
ppi
Assessment / Plan
Assessment / Plan
General: Well Developed, Well Nourished and No Apparent Distress
HEENT: NormoCephalic, Moist mucous membranes and Atraumatic
Respiratory: Clear
Cardiac: S1/S2 and Regular Rhythm; No Murmur or Rub
GI: Soft, Non Distended, Normal Bowel Sounds and Tender (periumbilical ); No Organomegaly
Rectal: Deferred by Provider
Musculoskeletal: No Clubbing, No Cyanosis and No Edema
Skin: No Rash
Neuro: Nonfocal/grossly intact
# Abdominal pain likely secondary to acute pancreatitis ?due to chemotherapy
- Lipase 1200-->1088
- CT scan shows questionable minimally edematous change of the pancreas which could represent minimal acute pancreatitis.
- Abdominal ultrasound shows no evidence of cholelithiasis, gallbladder wall thickening or biliary tract dilatation.
-on Folfox and Tecentriq treatment plan
- Continue with symptomatic management. Continue with IV fluids. Clear liquid diet. Pain control.
# Leukopenia/moderate neutropenia likely secondary to chemotherapy
#Thrombocytopenia likely secondary chemotherapy
- Monitor for now.
- Monitor CBC.
-Oncology eval
Recent opiate induced constipation
- Now resolved
Colon cancer status post right hemicolectomy on 05/29 on chemo
Gruber's esophagus
Severe iron deficiency anemia
-Hgb stable
Former heavy alcohol use
Full code
DVT prophylaxis-heparin
Anticipated Discharge: > 48 hours
Subjective/Interval History
-
Date of Service: September 06, 2025
remains with abd pain
had bm earlier today
Objective Data
-
Labs:
Laboratory Results
09/06/25
06:41
WBC 2.1 L*
Hgb 14.0
Hct 43.1
Plt Count 108 L
Sodium 135
Potassium 4.1
Chloride 106
Carbon Dioxide 28
BUN 11
Creatinine 0.8
Glucose 85
Calcium 8.8
Total Bilirubin 0.6
AST 32
ALT 41
Alkaline Phosphatase 92
Vital Signs:
Vital Signs
Temp Pulse Resp BP Pulse Ox
98.2 F 81 16 140/85 98
09/06/25 07:30 09/06/25 07:30 09/06/25 07:30 09/06/25 07:30 09/06/25 07:30
I&O
09/05/25 09/06/25 09/07/25
06:59 06:59 06:59
Intake Total 1500 / 1500
Balance 1500 / 1500
Data Reviewed
-
Total Time Spent with Patient (in minutes): 55
[2025-09-06] MEDS: PROTONIX 40 MG PO (12:39)
--- NOTE | 2025-09-06 13:36 | CON.ONC ---
Consultation
-
Date Consultation Requested: 09/06/25
Date Consultation Performed: 09/06/25
Requesting Provider: Capri
Performing Provider: Raza
Reason for Consultation: Chemo toxicity
Impression
Impression
Stage III colon cancer, MSI high
Pancreatitis
History of alcoholism
Bicytopenia
Plan
Plan
Supportive care with n.p.o.>clears IV fluids etc. treatment for pancreatitis. Elevated lipase is pretty convincing even though CT scan reveals mild disease.
Etiology unclear. Pancreas is a VERY rarely associated with Tecentriq <1% based on the package insert (see below)
[facility] RX[facility] per PI: Pancreatitis in [id number] patients treated with Tecentriq
18 (0.6%) - ALL GRADES
13 (0.4%) - GRADE 3-4
0 (0%) - GRADE 5
FREQUENCY: 'Uncommon'
Patient History
History of Present Illness
64-year-old male with stage III colon cancer, MSI high currently on adjuvant FOLFOX plus Tecentriq chemotherapy as per the atomic trial presents with periumbilical abdominal pain x 1 week. Workup reveals clinical evidence of pancreatitis including
elevated lipase = [address] shows 'Questionable minimal edematous changes of the pancreas which could represent minimal acute pancreatitis'. Prior history of heavy alcohol abuse but no prior history of pancreatitis
Past-Medical/Surgical History
PMH:
colon cancer status post right hemicolectomy on 05/29 on FOLFOX + Tecentriq , severe symptomatic iron deficiency anemia secondary to GI blood loss, hypertension, heavy alcohol use in the past
Past Surgical History: right hemicolectomy
SH
Tobacco: Non-smoker
Alcohol: Former
Drug: None
Family History
Family History: Not pertinent
Patient Medication
�Medication �Instructions �Recorded �Confirmed �Last Taken �Type
acetaminophen 500 mg capsule 1,000 mg PO Q6H PRN pain 07/07/25 07/12/25 07/05/25 History
iron 28 mg PO DAILY Supplement 07/07/25 07/12/25 07/05/25 History
Active Medications
Generic Name Dose Route Start Last Admin
Trade Name Freq PRN Reason Stop Dose Admin
Acetaminophen 650 mg 09/06/25 11:45
Acetaminophen 325 Mg Tablet PO 10/04/25 11:44
Q6HPRN PRN
mild pain/ fever>100.5F
Heparin Sodium 5,000 units 09/05/25 20:49 09/06/25 09:05
Heparin 5,000 Units/Ml 1 Ml Vial SC 10/03/25 20:48 5,000 units
Q12 MODESTO Administration
Hydromorphone HCl 0.5 mg 09/05/25 20:49
Hydromorphone 0.5 Mg/0.5 Ml Syringe IV 09/19/25 20:48
Q4HPRN PRN
severe pain
Lactated Ringer's 1,000 mls @ 150 mls/hr 09/05/25 22:00 09/06/25 12:40
Lr IV 1,000 mls
.Q6H40M MODESTO Administration
Oxycodone/Acetaminophen 1 tablet 09/06/25 08:13
Oxycodone 5 Mg/Apap 325 Mg (Percocet) PO 09/20/25 08:12
Q4HPRN PRN
mod pain
Pantoprazole Sodium 40 mg 09/06/25 12:00 09/06/25 12:39
Pantoprazole 40 Mg Delayed Release Tablet PO 10/04/25 11:59 40 mg
DAILY MODESTO Administration
Sodium Chloride 0 flush 09/05/25 21:00
Sodium Chloride 0.9% (Flush) Syringe IV 10/03/25 20:59
PER PROTOCOL MODESTO
Physical Exam
-
General: Well Developed and Well Nourished
HEENT: Negative Jaundice
Cardiology: Normal Sinus Rhythm, S1 and S2
Pulmonary: Clear
GI: Soft
Extremities: No C/C/E
Labs
Lab Results
WBC 2.1 10^3/uL (4.8-10.8) L* 09/06/25 06:41
RBC 5.31 10^6/uL (4.70-6.10) 09/06/25 06:41
Hgb 14.0 g/dL (13.0-18.0) 09/06/25 06:41
Hct 43.1 % (39.0-52.0) 09/06/25 06:41
MCV 81.2 fL (80.0-94.0) 09/06/25 06:41
MCH 26.4 pg (27.0-31.0) L 09/06/25 06:41
MCHC 32.5 g/dL (33.0-37.0) L 09/06/25 06:41
RDW 19.0 % (11.5-14.5) H 09/06/25 06:41
Plt Count 108 10^3/uL (130-400) L 09/06/25 06:41
MPV 10.1 fL (7.4-10.4) 09/06/25 06:41
Abs Immat Gran (auto) 0.0 10^3/uL (0-0.05) 09/06/25 06:41
Absolute Neuts (auto) 0.7 10^3/uL (1.4-6.5) L* 09/06/25 06:41
Absolute Lymphs (auto) 0.9 10^3/uL (1.2-3.4) L 09/06/25 06:41
Absolute Monos (auto) 0.2 10^3/uL (0.1-0.6) 09/06/25 06:41
Absolute Eos (auto) 0.2 10^3/uL (0-0.7) 09/06/25 06:41
Absolute Basos (auto) 0.0 10^3/uL (0-0.2) 09/06/25 06:41
Immature Gran % 0.5 % (0-0.5) 09/06/25 06:41
Neutrophils % 35.8 % (42.2-75.2) L 09/06/25 06:41
Lymphocytes % 45.4 % (20.5-51.1) 09/06/25 06:41
Monocytes % 10.6 % (1.7-9.3) H 09/06/25 06:41
Eosinophils % 7.2 % (0-6) H 09/06/25 06:41
Basophils % 0.5 % (0-2) 09/06/25 06:41
Creatinine 0.8 mg/dL (0.7-1.3) 09/06/25 06:41
Vital Signs
Vital Signs
Temp Pulse Resp BP Pulse Ox
98.2 F 81 16 140/85 98
09/06/25 07:30 09/06/25 07:30 09/06/25 07:30 09/06/25 07:30 09/06/25 07:30
[2025-09-06 15:15] VITALS: BMI 18.1
[2025-09-06 15:30] VITALS: BP 139/73
[2025-09-06 22:55] VITALS: BP 127/63
[2025-09-07] MEDS: LR 1000 IV ×3 (02:49→17:22)
[2025-09-07 07:30] VITALS: BP 128/77
[2025-09-07 07:36] LABS: ALT (SGPT) 35 U/L (0-50); AST (SGOT) 27 U/L (17-59); Albumin 3.3 g/dl (3.5-5.0); Alkaline Phosphatase 88 U/L (38-126); Blood Urea Nitrogen 7 mg/dl (9-20); Calcium 9.1 mg/dl (8.4-10.2); Carbon Dioxide 30 mmol/L (22-30); Chloride 108 mmol/L (98-107); Estimated Creatinine Clearance 79 ml/min; Glucose 87 mg/dl (70-99); Lipase 929 U/L (23-300); Potassium 4.4 mmol/L (3.5-5.1); Sodium 138 mmol/L (135-145); Total Protein 5.9 g/dl (6.3-8.2); eGFR > 60.00
[2025-09-07 07:41] LABS: Hematocrit 41.0 % (39.0-52.0); Hemoglobin 13.7 g/dL (13.0-18.0); Mean Corp Hgb Conc. 33.4 g/dL (33.0-37.0); Mean Corpuscular Volume 79.3 fL (80.0-94.0); Nucleated Red Blood Cells % 0 % (-); Platelet Count 111 10^3/uL (130-400); Red Cell Dist. Width 18.7 % (11.5-14.5)
[2025-09-07] MEDS: PROTONIX 40 MG PO (08:27)
[2025-09-07] MEDS: HEPARIN 5000 UNITS SC ×2 (08:27→19:45)
[2025-09-07] MEDS: TORADOL 15 MG IV ×2 (08:32→17:46)
--- NOTE | 2025-09-07 11:01 | W.PN.HOSP.TC ---
Today's Communication/Plan
-
Continue with IV fluids
Liquids for now
GI input.
Continue PPI
Assessment / Plan
Assessment / Plan
General: Cachectic
HEENT: NormoCephalic, Moist mucous membranes and Atraumatic
Respiratory: Clear
Cardiac: S1/S2 and Regular Rhythm; No Murmur or Rub
GI: Soft, Non Distended, Normal Bowel Sounds and Tender (periumbilical ); No Organomegaly
Rectal: Deferred by Provider
Musculoskeletal: No Clubbing, No Cyanosis and No Edema
Skin: No Rash
Neuro: Nonfocal/grossly intact
# Abdominal pain likely secondary to acute pancreatitis -unclear etiology
- Lipase 1215 on admission
- CT scan shows questionable minimally edematous change of the pancreas which could represent minimal acute pancreatitis.
- Abdominal ultrasound shows no evidence of cholelithiasis, gallbladder wall thickening or biliary tract dilatation.
- Continue with symptomatic management. Continue with IV fluids. Clear liquid diet. Pain control.
- Discussed with oncology
- No gallstone, sludge. Denies alcohol usage. No abdominal trauma. Calcium normal. Check lipid panel. Will defer autoimmune workup to GI. Will ask GI for input as remains with pain.
- If no improvement may need to consider MRI.
# Leukopenia/moderate neutropenia likely secondary to chemotherapy
#Thrombocytopenia likely secondary chemotherapy
- Monitor for now.
- Monitor CBC.
-Oncology recs
Recent opiate induced constipation
- Now resolved
Colon cancer status post right hemicolectomy on 05/29 on chemo
Gruber's esophagus
Severe iron deficiency anemia
-Hgb stable
Former heavy alcohol use
Full code
DVT prophylaxis-heparin
Anticipated Discharge: > 48 hours
Subjective/Interval History
-
Date of Service: September 07, 2025
States of abdominal pain earlier today.
Objective Data
-
Labs:
Laboratory Results
09/07/25
06:24
WBC 2.8 L
Hgb 13.7
Hct 41.0
Plt Count 111 L
Sodium 138
Potassium 4.4
Chloride 108 H
Carbon Dioxide 30
BUN 7 L
Creatinine 0.8
Glucose 87
Calcium 9.1
Total Bilirubin 0.6
AST 27
ALT 35
Alkaline Phosphatase 88
Vital Signs:
Vital Signs
Temp Pulse Resp BP Pulse Ox
98.1 F 66 16 128/77 97
09/07/25 07:30 09/07/25 07:30 09/07/25 07:30 09/07/25 07:30 09/07/25 10:15
I&O
09/06/25 09/07/25 09/08/25
06:59 06:59 06:59
Intake Total 1500 / 1500 2045
Balance 1500 / 1500 2045
Data Reviewed
-
Total Time Spent with Patient (in minutes): 55
--- NOTE | 2025-09-07 12:58 | W.PN.ONC2 ---
Today's Communication / Plan
-
OP follow up with Dr. Taveras will be arranged prior to next cycle of chemotherapy, next cycle due 09/13/2025 will be rescheduled to allow for pancreatitis and hospital recovery
Impression
Impression
Stage III colon cancer, MSI high s/p C4 FOLFOX/Tecentriq 08/30, did not receive GCSF
Pancreatitis unclear etiology-Abdominal ultrasound shows no evidence of cholelithiasis, gallbladder wall thickening or biliary tract dilatation
Former ETOH
leukopenia, ANC 1200 and thrombocytopenia with platelet count >100,000
constipation
cachexia
Plan
Plan
Supportive care, tolerating clear liquid diet, GI following
Pancreas is a VERY rarely associated with Tecentriq <1% based on the package insert -[facility] [employer] [facility] per PI: Pancreatitis in [id number] patients treated with Tecentriq
18 (0.6%) - ALL GRADES
13 (0.4%) - GRADE 3-4
0 (0%) - GRADE 5
Subjective/Objective
Subjective
cold neuropathies in bilateral hands
improved ab pain
tolerating liquid diet w/o nausea or vomiting
ambulating in room
Vital Signs:
Vital Signs
Temp Pulse Resp BP Pulse Ox
98.1 F 66 16 128/77 97
09/07/25 07:30 09/07/25 07:30 09/07/25 07:30 09/07/25 07:30 09/07/25 10:15
Lab Results:
Laboratory Data
WBC 2.8 10^3/uL (4.8-10.8) L 09/07/25 06:24
Hgb 13.7 g/dL (13.0-18.0) 09/07/25 06:24
Plt Count 111 10^3/uL (130-400) L 09/07/25 06:24
eGFR > 60.00 09/07/25 06:24
Physical Exam
HEENT: Moist Mucous Membranes; No Jaundice
Pulmonary: Other (unlabored)
GI: Soft and Other (thin)
Extremities: Pulses Present; No Edema
Neuro: Non Focal
[2025-09-07 15:30] VITALS: BP 157/91
--- NOTE | 2025-09-07 15:40 | CON.GI ---
Consultation
-
Date/Time Consultation Requested: 09/07/2025
Date/Time Consultation Performed: 09/07/2025
Requesting Provider:
Performing Provider:
Reason for Consultation: pancreatitis
Medical History
Chief Complaint / HPI
Chief Complaint: abdominal pain
History of Present Illness:
This is a 64-year-old male with past medical history of hypertension, severe symptomatic iron deficiency anemia and was admitted with a hemoglobin of 3.8 in May and had endoscopic workup including endoscopy and colonoscopy at that time and was
diagnosed with cecal mass he then underwent a right hemicolectomy on 05/29/[address] Orlando and was diagnosed with stage III colon cancer MSI high and he also underwent genetic testing and tested negative for Masterson (family history of bladder
cancer-younger Brother-, his twin brother of pancreatic and colon cancer at the age of 51, older brother was recently diagnosed with neuroendocrine tumor) he follows up with Dr. Madsen as outpatient. He also is on chemotherapy with FOLFOX
and Tecentriq since July and has received 4 cycles so far his last cycle was on 08/30/2025. He also was noted to have Gruber's esophagus on endoscopy. He has been having abdominal pain for the past 7 to 10 days and abdominal pain progressively
worsened he saw Dr. Madsen on Thursday and was told to come into the hospital and was noted to have elevated lipase level on admission and CT was consistent with mild pancreatitis. He was started on lactated Ringer's initially at 150 cc an hour
and she was decreased to 100 cc an hour his pain seems to be improving slowly. His ultrasound was negative for gallstones. His LFTs were also normal on admission and his lipase is trending down he did have mild leukopenia and thrombocytopenia from
chemotherapy his hemoglobin is stable at 13.7. He used to have a history of alcohol abuse and was drinking sixpack of beer but he said he quit about 5 or 6 years ago and was only rarely drinking alcohol and his last drink of beer was in May. He
denies any fevers or chills. He did have nausea with the pain. The pain was initially in the left side of the abdomen but progressively worsened and shifted more to the epigastric and right upper quadrant. He also says that he had few Tylenol # 3
at home which he took for the pain last week but made him very constipated so he discontinued it and he also took MiraLAX for the constipation and has improved. He has no rectal bleeding or melena currently. He also denies any recent weight loss
but prior to the diagnosis of the cancer he had lost about 20 to 30 pounds and his weight has been stable over since the resection. He denies any symptoms of reflux currently.
Past Medical History
Past Medical History: Other (stage 3 colon cancer status post right hemicolectomy on 05/29 on FOLFOX + Tecentriq , severe symptomatic DANIELLE, hypertension, heavy alcohol use in the past quit 2019)
Past Surgical History: Other (right hemicolectomy 05/29/2025 , foot fracture with repair)
Social History
Tobacco: Non-Smoker
Alcohol: Former (He was drinking a sixpack beer daily for quite a few years and about 6 years ago he quit and also was admitted for detox and since then he only has occasional beer and has not really had any alcohol since his surgery 05/29/2025)
Drug: None
Personal:
Living: With Family
Family History
Family History: Other (bladder cancer-younger Brother-, his twin brother of pancreatic and colon cancer at the age of 51, older brother was recently diagnosed with neuroendocrine tumor)
Allergies / Home Medications
Allergy/AdvReac Type Severity Reaction Status Date / Time
No Known Allergies Allergy Verified 09/05/25 14:08
�Medication �Instructions �Recorded
acetaminophen 500 mg capsule 1,000 mg PO Q6H PRN pain 07/07/25
iron 28 mg PO DAILY Supplement 07/07/25
Review of Systems
-
All other systems: A 12 pt ROS was Negative except as stated above in HPI
Vital Signs
Temp Pulse Resp BP Pulse Ox
98.1 F 66 16 128/77 97
09/07/25 07:30 09/07/25 07:30 09/07/25 07:30 09/07/25 07:30 09/07/25 10:15
Physical Exam
Exam
General: No Apparent Distress
HEENT: Normocephalic
Respiratory: Clear
Cardiac: S1/S2
GI: Soft, Non Distended, Normal Bowel Sounds and Tender (Mild tenderness in the epigastric and periumbilical area)
Musculoskeletal: No Clubbing
Skin: Warm and Other (He does have acne on his back)
Neuro: Awake, Alert and Oriented
Results
WBC 2.8 10^3/uL (4.8-10.8) L 09/07/25 06:24
Hgb 13.7 g/dL (13.0-18.0) 09/07/25 06:24
Hct 41.0 % (39.0-52.0) 09/07/25 06:24
MCV 79.3 fL (80.0-94.0) L 09/07/25 06:24
Plt Count 111 10^3/uL (130-400) L 09/07/25 06:24
Absolute Neuts (auto) 1.2 10^3/uL (1.4-6.5) L 09/07/25 06:24
Sodium 138 mmol/L (135-145) 09/07/25 06:24
Potassium 4.4 mmol/L (3.5-5.1) 09/07/25 06:24
Chloride 108 mmol/L (98-107) H 09/07/25 06:24
Carbon Dioxide 30 mmol/L (22-30) 09/07/25 06:24
BUN 7 mg/dl (9-20) L 09/07/25 06:24
Creatinine 0.8 mg/dL (0.7-1.3) 09/07/25 06:24
Calcium 9.1 mg/dl (8.4-10.2) 09/07/25 06:24
Total Bilirubin 0.6 mg/dl (0.2-1.3) 09/07/25 06:24
AST 27 U/L (17-59) 09/07/25 06:24
ALT 35 U/L (0-50) 09/07/25 06:24
Alkaline Phosphatase 88 U/L (38-126) 09/07/25 06:24
Lipase 929 U/L (23-300) H 09/07/25 06:24
Laboratory Tests
05/26/25 09/05/25 09/06/25
07:57 14:13 06:41
Lipase 1215 H* 1088 H*
Endomysial IgA Ab Titer <1:10
Tiss Transglutamin IgG 6.7
Tiss Transglutamin IgA 5.2
09/07/25
06:24
Lipase 929 H
Endomysial IgA Ab Titer
Tiss Transglutamin IgG
Tiss Transglutamin IgA
Diagnostic Image Results:
09/05/2025 CT abdomen and pelvis
IMPRESSION:
Questionable minimal edematous changes of the pancreas which could represent minimal acute pancreatitis.
Bilateral simple parapelvic renal cysts and subcentimeter low-attenuation right renal lesion too small to characterize.
At least relative diffuse thickening of the wall of the urinary bladder due to underdistention. Other etiology such as cystitis cannot be excluded.
09/05/2025 US abdomen
IMPRESSION: No evidence of cholelithiasis, gallbladder wall thickening or biliary tract dilatation.
Pancreas significantly obscured, most likely by overlying bowel gas.
Small bilateral simple renal cysts..
Prior GI Procedures:
EGD: 05/25/2025 Impression:
- Z-line irregular, at the gastroesophageal junction. Biopsied.- Barretts negf or dysplasia
- Small hiatal hernia.
- Multiple gastric polyps. Biopsied.- fundic gland polyps
- Biopsies were taken with a cold forceps for Helicobacter pylori
testing.- neg for H.Pylori
- Flattened mucosa was found in the duodenum, rule out celiac
disease. Biopsied.- negative for celiac
Colonoscopy: 05/27/2025 Impression:
- Likely malignant partially obstructing tumor in probably the
cecum/ascending colon. Biopsied. - adenocarcinoma Tattooed x 2 distal to mass.
- Two 4 mm polyps in the transverse colon - TA and in the rectum- TVA
removed with a cold snare. Resected and retrieved.
Assessment / Plan
-
1. First episode acute pancreatitis unclear etiology so far ultrasound was negative for gallstones, LFTS normal so doubt biliary etiology and he was on chemotherapy prior to admission on FOLFOX and Tecentriq last dose 08/30/25. Tecentriq is noted
to have very rare incidence of pancreatitis less than 1% but cannot rule out immune-mediated pancreatitis but may be less likely. Will get triglyceride levels and also IgG4 level. As described above he was tested and ruled out for Masterson syndrome.
His twin brother though had both colon and pancreatic cancer. Will get an MRI of the abdomen and continue IV fluids he is tolerating full liquids. If the above workup is completely negative then will need to consider Tecentriq being a possible
etiology for the pancreatitis. He was a heavy alcohol user 5 or 6 years ago but he was only having occasional alcohol over the past few years and his last drink was in May.
2. Stage III colon cancer MSI high status post right hemicolectomy for cecal cancer and sees Dr. Madsen as OP and currently on FOLFOX and Tecentriq every other week received 4 cycles so far since July. He will need a surveillance colonoscopy
in May 2026 with or Jhon
3. History of severe symptomatic iron deficiency anemia secondary to blood loss from colon cancer resolved after receiving blood transfusion and iron infusion in May and also status post right hemicolectomy for the colon cancer.
4. Constipation most likely was related to Tylenol with codeine and has resolved. Continue MiraLAX as needed.
5. Gruber's esophagus negative for dysplasia on endoscopy in May continue PPI will need surveillance endoscopy in [address] Bernal
Over 75 minutes was spent talking to the patient obtaining history, reviewing notes from multiple consultants during this admission and his prior admission in May, reviewing his outpatient records from his oncologist, reviewed imaging and labs
extensively, also reviewed his prior colonoscopy and endoscopy reports and discussed plan with patient.
Total Time Spent with Patient (in minutes): 75
Data Reviewed
-
CT Scan: Report Reviewed by me
Ultrasound: Report Reviewed by me
Old Records: Reviewed
Time spent with patient (in minutes): 75
-
-
Thank you for consultation and allowing me to participate in the patient's care. Please call the senior economist GI physician during the after hours with any questions or concerns.
[2025-09-07 23:00] VITALS: BP 132/78
[2025-09-08] MEDS: TORADOL 15 MG IV (04:22)
[2025-09-08] MEDS: LR 1000 IV ×2 (04:22→13:23)
[2025-09-08] MEDS: DILAUDID 0.5 MG IV ×4 (06:16→21:44)
[2025-09-08 06:46] LABS: Hematocrit 39.9 % (39.0-52.0); Hemoglobin 13.5 g/dL (13.0-18.0); Mean Corp Hgb Conc. 33.8 g/dL (33.0-37.0); Mean Corpuscular Volume 80.3 fL (80.0-94.0); Nucleated Red Blood Cells % 0 % (-); Platelet Count 108 10^3/uL (130-400); Red Cell Dist. Width 18.4 % (11.5-14.5)
[2025-09-08 07:00] VITALS: BP 166/84
[2025-09-08 07:05] LABS: ALT (SGPT) 33 U/L (0-50); AST (SGOT) 26 U/L (17-59); Albumin 3.4 g/dl (3.5-5.0); Alkaline Phosphatase 88 U/L (38-126); Blood Urea Nitrogen 7 mg/dl (9-20); Calcium 8.8 mg/dl (8.4-10.2); Carbon Dioxide 28 mmol/L (22-30); Chloride 107 mmol/L (98-107); Estimated Creatinine Clearance 79 ml/min; Glucose 85 mg/dl (70-99); HDL Cholesterol 54 mg/dl; LDL Cholesterol, Calculated 64 mg/dl; Potassium 4.0 mmol/L (3.5-5.1); Sodium 137 mmol/L (135-145); Total Protein 5.9 g/dl (6.3-8.2); Triglycerides 103 mg/dl (10-149); Very Low Density Lipoprotein 20 mg/dl (0-30); eGFR > 60.00
[2025-09-08] MEDS: PROTONIX 40 MG PO (08:25)
[2025-09-08] MEDS: HEPARIN 5000 UNITS SC ×2 (08:25→20:27)
--- NOTE | 2025-09-08 08:56 | W.PN.ONC2 ---
Today's Communication / Plan
-
.
Impression
Impression
Stage III colon cancer, MSI high s/p C4 FOLFOX/Tecentriq 08/30, did not receive GCSF
Pancreatitis unclear etiology-Abdominal ultrasound shows no evidence of cholelithiasis, gallbladder wall thickening or biliary tract dilatation
Former ETOH
leukopenia, ANC 1000 and thrombocytopenia with platelet count >100,000
constipation
cachexia
Plan
Plan
Supportive care, tolerating full liquid diet, GI following
F/U MRI ab w/o contrast
f/u IgG4 triglycerides
Pancreas is a VERY rarely associated with Tecentriq <1% based
OP follow up with Dr. Taveras will be arranged prior to next cycle of chemotherapy, next cycle due 09/13/2025 will be rescheduled to allow for pancreatitis and hospital recovery
Subjective/Objective
Subjective
cold neuropathies in bilateral hands
abdominal pain with advanced diet
ambulating in room
Vital Signs:
Vital Signs
Temp Pulse Resp BP Pulse Ox
97.6 F 66 16 166/84 96
09/08/25 07:00 09/08/25 07:00 09/08/25 07:00 09/08/25 07:00 09/08/25 07:00
Lab Results:
Laboratory Data
WBC 2.7 10^3/uL (4.8-10.8) L 09/08/25 05:52
Hgb 13.5 g/dL (13.0-18.0) 09/08/25 05:52
Plt Count 108 10^3/uL (130-400) L 09/08/25 05:52
eGFR > 60.00 09/08/25 05:52
Physical Exam
HEENT: Moist Mucous Membranes; No Jaundice
Pulmonary: Other (unlabored)
GI: Soft and Other (thin)
Extremities: Pulses Present; No Edema
Neuro: Non Focal
--- NOTE | 2025-09-08 11:05 | W.PN.HOSP.TC ---
Today's Communication/Plan
-
IVF
MRI abdomen ordered
Gi recs
pain control-bowel regimen
Assessment / Plan
Assessment / Plan
General: Cachectic
HEENT: NormoCephalic, Moist mucous membranes and Atraumatic
Respiratory: Clear
Cardiac: S1/S2 and Regular Rhythm; No Murmur or Rub
GI: Soft, Non Distended, Normal Bowel Sounds and Tender (periumbilical ); No Organomegaly
Rectal: Deferred by Provider
Musculoskeletal: No Clubbing, No Cyanosis and No Edema
Skin: No Rash
Neuro: Nonfocal/grossly intact
# Abdominal pain likely secondary to acute pancreatitis -unclear etiology
- Lipase 1215 on admission
- CT scan shows questionable minimally edematous change of the pancreas which could represent minimal acute pancreatitis.
- Abdominal ultrasound shows no evidence of cholelithiasis, gallbladder wall thickening or biliary tract dilatation.
- Continue with symptomatic management. Continue with IV fluids. Pain control.
- Discussed with oncology
- No gallstone, sludge. Denies alcohol usage. No abdominal trauma. Calcium normal. Triglycerides normal. Lipid panel noted without significant abnormality. Possibility of immune mediated?. IgG autoimmune workup started.
- MRI abdomen pending for today. Continue with continue with fulls. If improvement in abdominal pain can advance diet and monitor.
# Leukopenia/moderate neutropenia likely secondary to chemotherapy
#Thrombocytopenia likely secondary chemotherapy
- Monitor for now.
- Monitor CBC.
-Oncology recs
Recent opiate induced constipation
- Now resolved. Bowel regimen added for now.
Colon cancer status post right hemicolectomy on 05/29 on chemo
Gruber's esophagus
Severe iron deficiency anemia
-Hgb stable
Former heavy alcohol use
Full code
DVT prophylaxis-heparin
Anticipated Discharge: 24 - 48 hours
Subjective/Interval History
-
Date of Service: September 08, 2025
states of abd pain overnight
Objective Data
-
Labs:
Laboratory Results
09/08/25
05:52
WBC 2.7 L
Hgb 13.5
Hct 39.9
Plt Count 108 L
Sodium 137
Potassium 4.0
Chloride 107
Carbon Dioxide 28
BUN 7 L
Creatinine 0.8
Glucose 85
Calcium 8.8
Total Bilirubin 0.5
AST 26
ALT 33
Alkaline Phosphatase 88
Vital Signs:
Vital Signs
Temp Pulse Resp BP Pulse Ox
97.6 F 66 16 166/84 96
09/08/25 07:00 09/08/25 07:00 09/08/25 07:00 09/08/25 07:00 09/08/25 07:00
I&O
09/07/25 09/08/25 09/09/25
06:59 06:59 06:59
Intake Total 2045 / 2223
Balance 2045 / 2223
[2025-09-08] MEDS: SENOKOT-S 1 TABLET PO ×2 (12:28→20:28)
--- NOTE | 2025-09-08 14:02 | CM ---
Patient seen bedside.
Plan: home no needs anticipated.
--- NOTE | 2025-09-08 14:17 | W.PN.GI.CBS2 ---
Today's Communication / Plan
-
Adv to low fat diet
MRI without signs of choledocholithiasis and LFTs wnl
Avoid all ETOH
GI will sign off please call for ?
Assessment / Plan
-
Kian is a 64yo M with h/o Stage III colon cancer s/p R hemicolectomy on FOLFOX tecentriq completed 4 cycles July who is admitted with 1st episode of acute pancreatitis.
Impression
- Acute pancreatitis
Unclear etiology. Ddx includes ETOH vs med induced
MRI and abd US neg for gallstones. LFTs normal
- Constipation
- H/o iron def anemia
- GERD with BE
Recommendations
- Advanced to low fat diet
- MRI neg for gallstone disease or choledocholithiasis
- Avoid all ETOH
- Lipids wnl, IGG4 pending
- c/w IVF
- Pain management
- C/w miralax and PPI
GI will sign off please call for ?
Subjective
Subjective
Date of Service: September 08, 2025
His abd pain improving. No nausea/vomiting.
Objective
Data Reviewed
Laboratory Data:
Laboratory Results
09/08/25 05:52
09/08/25 05:52
Laboratory Results
Total Bilirubin 0.5 mg/dl (0.2-1.3) 09/08/25 05:52
AST 26 U/L (17-59) 09/08/25 05:52
ALT 33 U/L (0-50) 09/08/25 05:52
Alkaline Phosphatase 88 U/L (38-126) 09/08/25 05:52
Lipase 929 U/L (23-300) H 09/07/25 06:24
Vital Signs and I&O:
Vital Signs
Temp Pulse Resp BP Pulse Ox
97.6 F 66 16 166/84 96
09/08/25 07:00 09/08/25 07:00 09/08/25 07:00 09/08/25 07:00 09/08/25 07:00
I&O
09/07/25 09/08/25 09/09/25
06:59 06:59 06:59
Intake Total 2045 / 2223
Balance 2045
Physical Exam
Physical Exam
GEN: No acute distress, conversant, pleasant
HEENT: anicteric, extraocular movements intact, clear oropharynx without exudates
GI: soft, non-distended, epigastric mildly tender to palpation, normal active bowel sounds, no hepatosplenomegaly
EXT: warm, well perfused, no edema bilaterally
NEURO: AAOx3, non-focal
[2025-09-08 15:54] VITALS: BP 129/73
[2025-09-08 23:22] VITALS: BP 124/73
[2025-09-09] MEDS: DILAUDID 0.5 MG IV (06:25)
[2025-09-09 07:23] VITALS: BP 147/78
[2025-09-09 08:20] LABS: Hematocrit 41.9 % (39.0-52.0); Hemoglobin 13.8 g/dL (13.0-18.0); Mean Corp Hgb Conc. 32.9 g/dL (33.0-37.0); Mean Corpuscular Volume 80.4 fL (80.0-94.0); Nucleated Red Blood Cells % 0 % (-); Platelet Count 100 10^3/uL (130-400); Red Cell Dist. Width 18.6 % (11.5-14.5)
[2025-09-09] MEDS: PROTONIX 40 MG PO (08:27)
[2025-09-09] MEDS: SENOKOT-S 1 TABLET PO (08:27)
[2025-09-09] MEDS: HEPARIN 5000 UNITS SC (08:27)
[2025-09-09 08:45] LABS: ALT (SGPT) 34 U/L (0-50); AST (SGOT) 33 U/L (17-59); Albumin 3.5 g/dl (3.5-5.0); Alkaline Phosphatase 92 U/L (38-126); Blood Urea Nitrogen 9 mg/dl (9-20); Calcium 8.8 mg/dl (8.4-10.2); Carbon Dioxide 29 mmol/L (22-30); Chloride 106 mmol/L (98-107); Estimated Creatinine Clearance 79 ml/min; Glucose 92 mg/dl (70-99); Potassium 3.9 mmol/L (3.5-5.1); Sodium 136 mmol/L (135-145); Total Protein 6.1 g/dl (6.3-8.2); eGFR > 60.00
--- NOTE | 2025-09-09 11:41 | W.PN.HOSP.TC ---
Today's Communication/Plan
-
low fat diet
op onc f/u
Assessment / Plan
Assessment / Plan
General: Cachectic
HEENT: NormoCephalic, Moist mucous membranes and Atraumatic
Respiratory: Clear
Cardiac: S1/S2 and Regular Rhythm; No Murmur or Rub
GI: Soft, Non Distended, Normal Bowel Sounds and Tender (periumbilical ); No Organomegaly
Rectal: Deferred by Provider
Musculoskeletal: No Clubbing, No Cyanosis and No Edema
Skin: No Rash
Neuro: Nonfocal/grossly intact
# Abdominal pain likely secondary to acute pancreatitis -unclear etiology
- Lipase 1215 on admission
- CT scan shows questionable minimally edematous change of the pancreas which could represent minimal acute pancreatitis.
- Abdominal ultrasound shows no evidence of cholelithiasis, gallbladder wall thickening or biliary tract dilatation.
- Continue with symptomatic management. s/p aggressive IVF. Pain control.
- Discussed with oncology
- No gallstone, sludge. Denies alcohol usage. No abdominal trauma. Calcium normal. Triglycerides normal. Lipid panel noted without significant abnormality. Possibility of immune mediated?. IgG autoimmune workup started.
- MRI abdomen There is minimal T2 hyperintense signal within the peripancreatic soft tissues which may be sequelae of known pancreatitis. There is no evidence of pancreatic necrosis or a peripancreatic collection. There is no evidence of biliary
duct obstruction or choledocholithiasis.
- tolerating low fat diet.
# Leukopenia/moderate neutropenia likely secondary to chemotherapy
#Thrombocytopenia likely secondary chemotherapy
- Monitor for now.
- Monitor CBC.
-Oncology recs
Recent opiate induced constipation
- Now resolved. Bowel regimen added for now.
Colon cancer status post right hemicolectomy on 05/29 on chemo
Gruber's esophagus
Severe iron deficiency anemia
-Hgb stable
Former heavy alcohol use
Full code
DVT prophylaxis-heparin
More than 30 minutes spent in discharge including
Final examination of the patient
Summarizing hospital stay
Instructions for continuing care to all relevant caregivers
Preparation of discharge records, prescriptions, and referral forms
Total time spent (in minutes): 53
Anticipated Discharge: Today
Subjective/Interval History
-
Date of Service: September 09, 2025
tolerating diet
remains with mild abd pain
no nausea or vomiting
passing flatulence
Objective Data
-
Labs:
Laboratory Results
09/09/25
07:46
WBC 3.1 L
Hgb 13.8
Hct 41.9
Plt Count 100 L
Sodium 136
Potassium 3.9
Chloride 106
Carbon Dioxide 29
BUN 9
Creatinine 0.8
Glucose 92
Calcium 8.8
Total Bilirubin 0.4
AST 33
ALT 34
Alkaline Phosphatase 92
Vital Signs:
Vital Signs
Temp Pulse Resp BP Pulse Ox
97.7 F 66 16 147/78 96
09/09/25 07:23 09/09/25 07:23 09/09/25 07:23 09/09/25 07:23 09/09/25 07:23
I&O
09/08/25 09/09/25 09/10/25
06:59 06:59 06:59
Intake Total 2224 / 2224 900 / 900
Balance 2224 / 2224 900 / 900
--- NOTE | 2025-09-09 11:43 | W.DCSUMMARY ---
Discharge Summary
Discharge Data
Date of Admission: 09/06/25
Date of Discharge: 09/09/25
-
Pending Results: No
Hospital Course
64 male past medical history of colon cancer status post colectomy on chemotherapy, presenting with abdominal pain. Patient upon admission a significantly elevated lipase. Patient with pancreatitis. Patient was evaluated by gastroenterology and
oncology. Patient also with leukopenia and thrombocytopenia secondary to chemotherapy. CT scan shows questionable minimally edematous change of the pancreas which could represent minimal acute pancreatitis. Abdominal ultrasound shows no evidence
of cholelithiasis, gallbladder wall thickening or biliary tract dilatation. s/p aggressive IVF. Pain control. No gallstone, sludge. Denies alcohol usage. No abdominal trauma. Calcium normal. Triglycerides normal. Lipid panel noted without
significant abnormality. Possibility of immune mediated?. IgG autoimmune workup started. MRI abdomen There is minimal T2 hyperintense signal within the peripancreatic soft tissues which may be sequelae of known pancreatitis. There is no evidence
of pancreatic necrosis or a peripancreatic collection. There is no evidence of biliary duct obstruction or choledocholithiasis. Diet was advanced from liquid to low fat diet. Patient be discharged home with outpatient oncology.
Discharge Plan
-
Patient Disposition: Home (Routine Discharge)
Discharge Diagnosis/Procedures: Acute pancreatitis
Condition: Fair
Diet: Low Fat
Activity: As tolerated
Driving Restrictions: As prior to admission
Referrals:
Carey Taveras MD [Active, Hematology / Oncology] - in one to two weeks
Referral Note: call to make appointment.
PRIVATE,PHYSICIAN [Family Provider, Internal Medicine]
Prescriptions:
New
pantoprazole 40 mg Tablet,Delayed Release (Dr/Ec)
40 mg PO DAILY 14 Days Qty: 14 0RF
tramadol 50 mg tablet
50 mg PO Q6H PRN (Reason: severe pain) Qty: 10 0RF
polyethylene glycol 3350 [ClearLax] 17 gram powder in packet
17 g PO DAILY Qty: 14 0RF
Continued
acetaminophen 500 mg Capsule
1,000 mg PO Q6H PRN (Reason: pain)
prochlorperazine maleate 10 mg Tablet
10 mg PO Q6H PRN (Reason: nausea)
ondansetron 8 mg Tablet,Disintegrating
8 mg PO Q8H PRN (Reason: nausea)
Discharge Orders:
Discharge Patient (As Directed); Ordered 09/09/25
Ordered By: Mart Farooq
Discharge Date and Time
Discharge Date/Time: 09/09/25 13:46
Print Language: MALIAN
[2025-09-09 13:33] VITALS: BP 171/90
== END 2025-09-09 13:46 | disposition home or self-care (01) | DRG 439 ==
LOC: 2 NORTH 08:12
PROVIDERS: Emergency Medicine; ADMITTING PHYSICIAN Hospitalist; ATTENDING PHYSICIAN Hospitalist; CONSULT PHYSICIAN Internal Medicine Hematology & Oncology; EMERGENCY PHYSICIAN Emergency Medicine; OTHER PHYSICIAN Internal Medicine Gastroenterology
DX: K85.90 Acute pancreatitis without necrosis or infection, unspecified (principal); C18.9 Malignant neoplasm of colon, unspecified; R64 Cachexia; Z68.1 Body mass index [BMI] 19.9 or less, adult; D70.1 Agranulocytosis secondary to cancer chemotherapy; T45.1X5A Adverse effect of antineoplastic and immunosuppressive drugs, initial encounter; D69.59 Other secondary thrombocytopenia; I10 Essential (primary) hypertension; K22.70 Barrett's esophagus without dysplasia; D50.0 Iron deficiency anemia secondary to blood loss (chronic); K44.9 Diaphragmatic hernia without obstruction or gangrene; K59.03 Drug induced constipation; N28.1 Cyst of kidney, acquired; T40.605A Adverse effect of unspecified narcotics, initial encounter; Z79.899 Other long term (current) drug therapy; Z85.038 Personal history of other malignant neoplasm of large intestine; Z87.891 Personal history of nicotine dependence; Z92.21 Personal history of antineoplastic chemotherapy
CPT/HCPCS: 74177; 74183; 76700; 80053; 80061; 82787; 83690; 84478; 85025; 96360; 99284; A9575; Q9967